=== PATIENT | female | born 1950 | race Caucasian/White ===

== ENCOUNTER 2016-05-16 00:56 | Inpatient (IN) | payer MEDICARE ==
[2016-05-16] VITALS (12 sets, daily range): BP systolic 106–151; BP diastolic 53–67; PULSE 89–106; RESP 15–20; TEMP 96–97.5; O2SAT 95–100
[~2016-05-16] VITALS: Ht 160 cm; Wt 58.3 kg
[~2016-05-16 00:56] MED LIST: ASPI81 PO; LATA.005%O OU; LEVO100T60 PO; NOVOLOGP2 IMPLANPUMP; SIMV20 PO
--- NOTE | 2016-05-16 01:07 | PD ---
HPI Chief Complaint: Fall Time Seen by Provider: 01:07 Travel History International Travel<30 days: No Contact w/Intl Traveler<30days: No Traveled to known affect area: No History of Present Illness HPI 66-year-old female with history of CAD with stent placement, hypertension, COPD , type 1 diabetes with an insulin pump, PVD, tobacco dependency, presents to the emergency department for evaluation of right hip pain. Patient states that she was walking her dog when she tripped over her dog and landed on her hip. She rates the pain 10 out of 10. She is unable to ambulate secondary to the pain. She did not strike her head or lose consciousness. Denies alterations in sensation. States she is unable to move the right hip without extreme pain. No other symptoms to report. PFSH Past Medical History Cancer: No Cardiovascular Problems: No Chest Pain: No Diabetes: Yes Endocrine: Yes Gastrointestinal Disorders: No Glaucoma: No Genitourinary: No Hepatitis: No Hiatal Hernia: Yes Hypertension: No Immune Disorder: No Musculoskeletal: No Neurologic: No Psychiatric: No Reproductive: No Respiratory: No Integumentary: No Thyroid Disease: Yes Past Surgical History Abdominal Surgery: Yes (appendectomy hernia repair stents placed in lower abd) Body Medical Devices: stents in the lower abd and diabetes device Cardiac Surgery: No Ear Surgery: No Endocrine Surgery: Yes (INSULIN PUMP) Eye Surgery: Yes (LASER) Genitourinary Surgery: No Gynecologic Surgery: No Oral Surgery: No Thoracic Surgery: No Social History Alcohol Use: Yes Tobacco Use: Yes Substance Use: No Allergies-Medications (Allergen,Severity, Reaction): Coded Allergies: Keflex (Verified Allergy, Severe, trouble breathing, 05/16/16) Naproxen (Verified Allergy, Severe, HIVES, , 05/16/16) Penicillin (Verified Allergy, Severe, trouble breathing, 05/16/16) Sulfa (Verified Allergy, Severe, trouble breathing, 05/16/16) Bethanechol (Verified Allergy, Intermediate, 05/16/16) Celebrex (Verified Allergy, Intermediate, 05/16/16) Reported Meds & Prescriptions Reported Meds & Active Scripts Active Reported Lisinopril 2.5 Mg Tab 2.5 Mg PO DAILY Plavix (Clopidogrel Bisulfate) 75 Mg Tab 75 Mg PO DAILY Furosemide 20 Mg Tab 20 Mg PO DAILY Aspirin 81 (Aspirin) 81 Mg Tabdr 81 Mg PO DAILY Novolog Inj (Insulin Aspart) 1,000 Unit/10 Ml Vial 0 SQ DIRECTED Sliding Scale as directed. Latanoprost Opth Drops (Latanoprost) 0.005% Drops 1 Drop EACH EYE HS Refrigerate until opened. Pravastatin 40 Mg Tab 40 Mg PO DAILY Levothyroxine (Levothyroxine Sodium) 100 Mcg Tab 100 Mcg PO DAILY Review of Systems Except as stated in HPI: all other systems reviewed are Neg Physical Exam Narrative GENERAL: Well-nourished, well-developed female patient, lying in bed, in no acute distress SKIN: Warm and dry. HEAD: Normocephalic. Atraumatic EYES: No scleral icterus. No injection or drainage. Pupils are equal and reactive. NECK: Supple, trachea midline. No JVD or lymphadenopathy. Cervical spine tenderness to palpation. CARDIOVASCULAR: Regular rate and rhythm without murmurs, gallops, or rubs. RESPIRATORY: Breath sounds are coarse, state and expiratory wheeze, equal bilaterally. No accessory muscle use. Abdomen: Abdomen soft, non-tender, nondistended. Positive bowel sounds. No hepato-splenomegaly, or palpable masses. No guarding. MUSCULOSKELETAL: No cyanosis. Edema, lower lateral deformity of the right hip. Areas very tender to palpate. The right lower extremity is shortened and rotated outward. Distal pulses are palpable. Cap refill is within normal limits. Patient can flex and extend the distal lower extremities. Sensation is intact distal affected extremity. BACK: Nontender without obvious deformity. No CVA tenderness. Data Data Last Documented VS Vital Signs Date Time Temp Pulse Resp B/P Pulse Ox O2 Delivery O2 Flow Rate FiO2 05/16/16 01:11 Room Air 05/16/16 01:06 97.5 103 18 144/67 95 Orders Basic Metabolic Panel (Bmp) (05/16/16 01:05) Complete Blood Count With Diff (05/16/16 01:05) Prothrombin Time / Inr (Pt) (05/16/16 01:05) Act Partial Throm Time (Ptt) (05/16/16 01:05) Alcohol (Ethanol) (05/16/16 01:05) Urinalysis - C+S If Indicated (05/16/16 01:05) Chest, Single Ap (05/16/16 01:05) Iv Access Insert/Monitor (05/16/16 01:05) Ecg Monitoring (05/16/16 01:05) Oximetry (05/16/16 01:05) Oxygen Administration (05/16/16 01:05) Sodium Chloride 0.9% Flush (Ns Flush) (05/16/16 01:15) Hip, Uni(Ap&Lat) W Ap Pelvis (05/16/16 ) MDM Medical Decision Making Medical Screen Exam Complete: Yes Emergency Medical Condition: Yes Medical Record Reviewed: Yes Differential Diagnosis fracture versus dislocation versus contusion versus sprain Narrative Course 66-year-old female presents to emergency department for evaluation following a fall. Patient appears without distress. There appears to be lateral deformity of the right hip with shortening and rotation of the right lower extremity. The extremity remains neurovascularly intact. X-ray imaging and lab work is ordered. Patient is signed out to my attending physician Dr. Marquez who will assume care at this time. Condition: Stable Georgia Lopez May 16, 2016 01:07
[2016-05-16] MEDS ORDERED: SODIUM CHLORIDE 0.9% FLUSH 5 ML FLUSH IVF PRN ×3 (01:15→11:15)
[2016-05-16] MEDS ORDERED: LEVO112T2 PO (01:19)
[2016-05-16] MEDS ORDERED: PRAV40TA2 PO (01:19)
[2016-05-16] MEDS ORDERED: LATA0.002 EACH EYE (01:19)
[2016-05-16] MEDS ORDERED: LISI2.5T3 PO (01:19)
[2016-05-16] MEDS ORDERED: PLAV75TA29 PO (01:19)
[2016-05-16] MEDS ORDERED: ASPI-110 PO (01:19)
[2016-05-16] MEDS ORDERED: FURO20TA PO (01:19)
[2016-05-16] MEDS ORDERED: NOVOLOGP2 SQ (01:19)
[2016-05-16] MEDS ORDERED: LEVO100T5 PO (01:19)
--- NOTE | 2016-05-16 01:27 | PD ---
Physical Exam Narrative Patient was seen by my food and beverage assistant and signed out to me. Patient has history hypertension, diabetes, hypothyroidism, PVD, stents placement and IVC in place. Patient's on Plavix. Data Data Last Documented VS Vital Signs Date Time Temp Pulse Resp B/P Pulse Ox O2 Delivery O2 Flow Rate FiO2 05/16/16 03:42 20 98 05/16/16 01:11 Room Air 05/16/16 01:06 97.5 103 144/67 Orders Basic Metabolic Panel (Bmp) (05/16/16 01:05) Complete Blood Count With Diff (05/16/16 01:05) Prothrombin Time / Inr (Pt) (05/16/16 01:05) Act Partial Throm Time (Ptt) (05/16/16 01:05) Alcohol (Ethanol) (05/16/16 01:05) Urinalysis - C+S If Indicated (05/16/16 01:05) Chest, Single Ap (05/16/16 01:05) Iv Access Insert/Monitor (05/16/16 01:05) Ecg Monitoring (05/16/16 01:05) Oximetry (05/16/16 01:05) Oxygen Administration (05/16/16 01:05) Sodium Chloride 0.9% Flush (Ns Flush) (05/16/16 01:15) Hip, Uni(Ap&Lat) W Ap Pelvis (05/16/16 ) Electrocardiogram (05/16/16 ) Hydromorphone Pf Inj (Dilaudid Pf Inj) (05/16/16 02:00) Ondansetron Inj (Zofran Inj) (05/16/16 02:00) Urinary Catheter Insert/Apply (05/16/16 01:51) ^ Property Developer / Telemetry (05/16/16 02:54) Vital Signs (Adult) Q4H (05/16/16 02:54) Diet Npo (05/16/16 Breakfast) Activity Bed Rest (05/16/16 02:54) ^ Saline Lock (05/16/16 02:54) Resp Oxygen Carlos C Titrat 1-4 L (05/16/16 ) ^ Notify Dr: Other (05/16/16 02:54) Ondansetron Inj (Zofran Inj) (05/16/16 03:00) Acetaminophen (Tylenol) (05/16/16 03:00) Sodium Chloride 0.9% Flush (Ns Flush) (05/16/16 09:00) Sodium Chloride 0.9% Flush (Ns Flush) (05/16/16 03:00) Consult Orthopedic (05/16/16 02:54) Splint Or Brace Apply/Monitor (05/16/16 02:56) Hydromorphone Pf Inj (Dilaudid Pf Inj) (05/16/16 03:00) Hydromorphone Pf Inj (Dilaudid Pf Inj) (05/16/16 03:00) (Hub Use Only)Inp Phy Cons/Ref (05/16/16 ) Admit Order (Ed Use Only) (05/16/16 03:46) Labs Laboratory Tests Test 05/16/16 05/16/16 01:26 03:00 White Blood Count 11.8 TH/MM3 Red Blood Count 3.72 MIL/MM3 Hemoglobin 12.5 GM/DL Hematocrit 36.9 % Mean Corpuscular Volume 99.1 FL Mean Corpuscular Hemoglobin 33.4 PG Mean Corpuscular Hemoglobin 33.7 % Concent Red Cell Distribution Width 13.5 % Platelet Count 309 TH/MM3 Mean Platelet Volume 8.0 FL Neutrophils (%) (Auto) 68.9 % Lymphocytes (%) (Auto) 19.6 % Monocytes (%) (Auto) 10.3 % Eosinophils (%) (Auto) 0.7 % Basophils (%) (Auto) 0.5 % Neutrophils # (Auto) 8.1 TH/MM3 Lymphocytes # (Auto) 2.3 TH/MM3 Monocytes # (Auto) 1.2 TH/MM3 Eosinophils # (Auto) 0.1 TH/MM3 Basophils # (Auto) 0.1 TH/MM3 CBC Comment DIFF FINAL Differential Comment Prothrombin Time 9.8 SEC Prothromb Time International 0.9 RATIO Ratio Activated Partial 27.3 SEC Thromboplast Time Sodium Level 143 MEQ/L Potassium Level 3.9 MEQ/L Chloride Level 108 MEQ/L Carbon Dioxide Level 22.1 MEQ/L Anion Gap 13 MEQ/L Blood Urea Nitrogen 29 MG/DL Creatinine 0.95 MG/DL Estimat Glomerular Filtration 59 ML/MIN Rate Random Glucose 62 MG/DL Calcium Level 7.9 MG/DL Ethyl Alcohol Level 167 MG/DL Urine Color LIGHT-YELLOW Urine Turbidity CLEAR Urine pH 5.0 Urine Specific [place] 1.009 Urine Protein NEG mg/dL Urine Glucose (UA) NEG mg/dL Urine Ketones NEG mg/dL Urine Occult Blood NEG Urine Nitrite NEG Urine Bilirubin NEG Urine Urobilinogen LESS THAN 2.0 MG/DL Urine Leukocyte Esterase NEG Urine RBC LESS THAN 1 /hpf Urine Bacteria RARE /hpf Urine Mucus FEW /lpf Microscopic Urinalysis Comment CULT NOT INDICATED MDM Supervised Visit with JOAQUINA: Yes Interpretation(s) 2 36 AM. Right hip x-ray showed comminuted intertrochanteric fracture a hip. Chest x-ray shows no acute pathology. CBC within normal limit. BUN 29. Calcium 7.9. Glucose 62. Alcohol 167. Diagnosis Primary Impression: Fracture of right femur Qualified Code: S72.141A - Closed displaced intertrochanteric fracture of right femur, initial encounter Admitting Information Admitting Physician Requests: Admit Yadiel Marquez MD May 16, 2016 01:27
[2016-05-16 01:34] LABS: AUTOMATED NEUTROPHIL # 8.1 TH/MM3 (1.8-7.7); BASOPHIL # 0.1 TH/MM3 (0-0.2); BASOPHIL % 0.5 % (0.0-2.0); EOSINOPHIL # 0.1 TH/MM3 (0-0.4); EOSINOPHIL % 0.7 % (0.0-4.0); HEMATOCRIT 36.9 % (35.0-46.0); HEMO FLAGS DIFF FINAL; LYMPH % 19.6 % (9.0-44.0); LYMPHOCYTE # 2.3 TH/MM3 (1.0-4.8); MEAN CELL VOLUME 99.1 FL (80.0-100.0); MEAN CORPUSCULAR HEMOGLOBIN 33.4 PG (27.0-34.0); MEAN CORPUSCULAR HGB CONC 33.7 % (32.0-36.0); MONO % 10.3 % (0.0-8.0); NEUT % 68.9 % (16.0-70.0); PLATELET COUNT 309 TH/MM3 (150-450); RED BLOOD COUNT 3.72 MIL/MM3 (4.00-5.30); RED CELL DISTRIBUTION WIDTH 13.5 % (11.6-17.2); WHITE BLOOD COUNT 11.8 TH/MM3 (4.0-11.0)
[2016-05-16 01:48] LABS: BICARBONATE 22.1 MEQ/L (21.0-32.0); POTASSIUM 3.9 MEQ/L (3.5-5.1)
[2016-05-16 01:52] LABS: APTT (PATIENT) 27.3 SEC (24.3-30.1); INTERNATIONAL NORMALIZED RATIO 0.9 RATIO; PROTHROMBIN TIME - PATIENT 9.8 SEC (9.8-11.6)
[2016-05-16] MEDS ORDERED: ONDANSETRON HCL 4 MG/2 ML VIAL IV PUSH ONE ×2 (02:00→11:38)
[2016-05-16] MEDS ORDERED: HYDROmorphone HCL PF 1 MG/ML VIAL SQ ONE (02:00)
--- NOTE | 2016-05-16 02:26 | RADRPT ---
EXAM DATE/TIME: 05/16/2016 01:59 [facility] COMPARISON: No previous studies available for comparison. INDICATIONS : Pt tripped and fell tonight. C/o right hip pain. MEDICAL HISTORY : Diabetes mellitus type II. SURGICAL HISTORY : None. ENCOUNTER: Initial ACUITY: 1 day PAIN SCORE: 8/10 LOCATION: Bilateral chest FINDINGS: A single view of the chest demonstrates the lungs to be symmetrically aerated without evidence of mas s, infiltrate or effusion. The cardiomediastinal contours are unremarkable. Osseous structures are intact. CONCLUSION: Normal examination. Dion Sales MD on May 16, 2016 at 2:24 Board Certified Radiologist. This report was verified electronically.
--- NOTE | 2016-05-16 02:27 | RADRPT ---
EXAM DATE/TIME: 05/16/2016 02:01 [facility] COMPARISON: No previous studies available for comparison. INDICATIONS : Pt tripped and fell tonight. C/o right hip pain. MEDICAL HISTORY : Diabetes mellitus type II. SURGICAL HISTORY : None. None. ENCOUNTER: Initial ACUITY: 1 day PAIN SCORE: 9/10 LOCATION: Right hip FINDINGS: Examination of the right hip was performed with AP Pelvis. There is a comminuted intertrochanteric fr acture the right hip. There is definite foreshortening and varus alignment of the femoral neck and fe moral shaft CONCLUSION: Comminuted intertrochanteric fracture of the right hip. Dion Sales MD on May 16, 2016 at 2:25 Board Certified Radiologist. This report was verified electronically.
[2016-05-16] MEDS ORDERED: ONDANSETRON HCL 4 MG/2 ML VIAL IV PRN (03:00)
[2016-05-16] MEDS ORDERED: HYDROmorphone HCL PF 1 MG/ML VIAL IV PUSH ONE (03:00)
[2016-05-16] MEDS ORDERED: ACETAMINOPHEN 325 MG TAB PO PRN (03:00)
[2016-05-16 03:27] LABS: BACTERIA, URINE RARE /hpf; BLOOD, URINE NEG (NEG); COMMENT (UR) CULT NOT INDICATED; CULTURE IF INDICATED CULT NOT INDICATED; GLUCOSE,URINE NEG (NEG); KETONE, URINE NEG (NEG); MUCUS URINE FEW /lpf (OCC); NITRITE,URINE NEG (NEG); URINE COLOR LIGHT-YELLOW (YELLW/STRAW)
[2016-05-16] MEDS: HYDROmorphone HCL PF 1 MG/ML VIAL IV PUSH PRN ×2 (06:23→19:49)
[2016-05-16] MEDS ORDERED: SODIUM CHLORIDE 0.9% FLUSH 5 ML FLUSH IVF SCH (09:00)
[2016-05-16] MEDS ORDERED: GLUCAGON 1 MG/ML VIAL OTHER PRN (10:00)
[2016-05-16] MEDS ORDERED: DEXTROSE 50% IN WATER 50 ML VIAL(D50) IV PUSH PRN (10:00)
[2016-05-16] MEDS ORDERED: MIDAZOLAM HCL 2 MG/2 ML VIAL ONE (10:01)
--- NOTE | 2016-05-16 10:01 | MB ---
cc: SAVAGE GARCIA DATE OF CONSULTATION: 05/16/2016 REASON FOR CONSULTATION: Right hip intertrochanteric fracture. HISTORY Di is a 66-year old female who has a history of coronary artery disease, hypertension, COPD, and diabetes. She presented emergency room after having a fall. She was walking her dog when she tripped over her dog's leash landing on her right side. She had immediate right hip pain. She was unable to stand or ambulate. She presented to the emergency room where x-rays revealed a right hip intertrochanteric fracture. She is currently awake and alert on the orthopedic floor. Her only complaint is her right hip. Pain is improved with rest and is worse with movement. She denies any dizziness, syncope, loss of consciousness. PAST MEDICAL HISTORY: 1. Diabetes. 2. Hiatal hernia. 3. Coronary artery disease. 4. COPD. PAST SURGICAL HISTORY: 1. Appendectomy. 2. Hernia repair. 3. Coronary artery stent placement. 4. Insulin pump placement. 5. Laser eye surgery. ALLERGIES: KEFLEX NAPROXEN PENICILLIN SULFA CELEBREX MEDICATIONS: 1. Lisinopril 2. Plavix. 3. Lasix. 4. Aspirin 5. Novolog. 6. Pravastatin. 7. Levothyroxine. SOCIAL HISTORY: The patient drinks alcohol. She smokes cigarettes daily. She denies drug use. REVIEW OF SYSTEMS: The patient denies headache, visual changes, neck pain, chest pain, shortness of breath, abdominal pain, nausea, vomiting or recent weight loss. She complains of right hip pain. FAMILY HISTORY: Noncontributory. PHYSICAL EXAMINATION: The patient is a thin 66 year-old female in no acute distress. She is awake and alert. She is alert and oriented x3. Vital signs: Temperature 97.0, pulse 101, respiratory rate 16, blood pressure 114/59. O2 sat is 97% on room air. Head: The patient is normocephalic. Pupils are equal. Neck: Soft, nontender. Trachea is midline. Abdomen: Soft, nontender, nondistended. Extremities: Examination of bilateral upper extremities reveals no significant pain with shoulder, elbow or wrist motion. She has intact sensation in all fingers bilaterally. Radial pulses are palpable bilaterally. Director Of Digital Marketing strength is +5 bilaterally. Examination of left leg reveals no pain with hip, knee or ankle motion. Skin is intact. Dorsalis pedis pulses palpable. Sensation is grossly intact. Examination of right leg reveals pain with any hip motion. She has no tenderness on the knee, tibia or ankle. Skin is intact. Dorsalis pedis pulses palpable. Sensation is grossly intact to right foot. X-RAYS X-rays of right hip were reviewed. X-rays reveal a displaced right hip intertrochanteric fracture. IMPRESSION 1. Right hip intertrochanteric fracture. 2. Smoking dependence 3. Coronary artery disease 4. Diabetes 5. COPD. PLAN She has a displaced right hip intertrochanteric fracture. Treatment options were discussed with the patient. At this point I would recommend right hip reduction, intramedullary nail fixation. The risks of surgery include bleeding, infection, injury to arteries, nerves or blood vessels, nonunion, malunion, avascular process, need for hip replacement as well as medical complications including blood clot, stroke, heart attack and . All questions were answered. I will plan on surgery today. A mid-level provider in my office (nurse practitioner or physician pharmacy technician assistant) may see this patient on follow-up visits and continue to implement the objectives of this plan including: Starting or adjusting medications, injections , cast application, orthotics, brace application, physical therapy, radiological studies (including x-ray, MRI, CT, ultrasound, bone scan), vascular studies, neurologic studies, specialist consultation, and proceeding with surgical management, as appropriate. Savage MD ELIZABETH Izaguirre/ERIN /9:44 AM /9:55 AM LENA
[2016-05-16] MEDS ORDERED: ACETAMINOPHEN 1000 MG/100 ML VIAL IV ONE (10:02)
[2016-05-16] MEDS ORDERED: FAMOTIDINE 20 MG/2 ML VIAL ONE (10:02)
[2016-05-16] MEDS ORDERED: fentaNYL CITRATE 250 MCG/5 ML AMP ONE (10:02)
[2016-05-16] MEDS ORDERED: CLINDAMYCIN PHOS 600 MG/4 ML VIAL ONE (10:22)
[2016-05-16] MEDS ORDERED: GENTAMICIN SULFATE 80 MG/2 ML VIAL IRRIGATION ONE (10:55)
[2016-05-16] MEDS ORDERED: BUPIVACAINE/EPINEPHRINE 0.25% PF 30 ML VIAL ONE (11:08)
--- NOTE | 2016-05-16 11:10 | HHI.HP ---
HPI Service [facility] Hospitalists Primary Care Physician Loy Orourke M.D. Admission Diagnosis fracture right femur Chief Complaint: hip pain Travel History International Travel<30 Days: No Contact w/Intl Traveler <30 Da: No Traveled to Known Affected Are: No History of Present Illness Pt is 66 yo with cad, htn, dm who presents with right hip pain after trip over dog leash. etoh noted in her system. She is found to have right intertroch fx. She is seen now in [facility]..she is waking up. Her bg is 133 and her insulin pump still attached. no cp or sob. her vss are stable on monitor. No loc in the fall. Review of Systems Other trip over dog leash with right hip/leg pain Past Family Social History Past Medical History dm. 1. insulin pump implant cad "3 stents" hypothyroidism htn copd HH appe hernia repair IVC filter for leg dvt Reported Medications Lisinopril 2.5 Mg Tab 2.5 Mg PO DAILY Plavix (Clopidogrel Bisulfate) 75 Mg Tab 75 Mg PO DAILY Furosemide 20 Mg Tab 20 Mg PO DAILY Aspirin 81 (Aspirin) 81 Mg Tabdr 81 Mg PO DAILY Novolog Inj (Insulin Aspart) 1,000 Unit/10 Ml Vial 0 SQ DIRECTED Sliding Scale as directed. Latanoprost Opth Drops (Latanoprost) 0.005% Drops 1 Drop EACH EYE HS Refrigerate until opened. Pravastatin 40 Mg Tab 40 Mg PO DAILY Levothyroxine (Levothyroxine Sodium) 100 Mcg Tab 100 Mcg PO DAILY denies xarelto use. Allergies: Coded Allergies: Keflex (Verified Allergy, Severe, trouble breathing, 05/16/16) Naproxen (Verified Allergy, Severe, HIVES, , 05/16/16) Penicillin (Verified Allergy, Severe, trouble breathing, 05/16/16) Sulfa (Verified Allergy, Severe, trouble breathing, 05/16/16) Bethanechol (Verified Allergy, Intermediate, 05/16/16) Celebrex (Verified Allergy, Intermediate, 05/16/16) Family History nc Social History etoh- daily wine 2 glasses. denies DT's and tob use up to 1ppd since teenager Physical Exam Vital Signs drowsy from anesthesia heart reg lung cta abd s/nt ext right lat hip swollen garcia Vital Signs Date Time Temp Pulse Resp B/P Pulse Ox O2 Delivery O2 Flow Rate FiO2 05/16/16 07:16 97.0 101 16 114/59 97 05/16/16 06:15 97.4 95 16 106/63 97 05/16/16 05:54 96 20 107/53 96 05/16/16 05:29 96 20 117/53 96 05/16/16 04:18 20 05/16/16 04:18 20 05/16/16 04:05 100 20 151/58 98 05/16/16 03:42 20 98 05/16/16 01:11 Room Air 05/16/16 01:06 97.5 103 18 144/67 95 Room Air 05/16/16 01:01 97.5 105 18 95 Laboratory Laboratory Tests Test 05/16/16 05/16/16 01:26 03:00 White Blood Count 11.8 Red Blood Count 3.72 Hemoglobin 12.5 Hematocrit 36.9 Mean Corpuscular Volume 99.1 Mean Corpuscular Hemoglobin 33.4 Mean Corpuscular Hemoglobin 33.7 Concent Red Cell Distribution Width 13.5 Platelet Count 309 Mean Platelet Volume 8.0 Neutrophils (%) (Auto) 68.9 Lymphocytes (%) (Auto) 19.6 Monocytes (%) (Auto) 10.3 Eosinophils (%) (Auto) 0.7 Basophils (%) (Auto) 0.5 Neutrophils # (Auto) 8.1 Lymphocytes # (Auto) 2.3 Monocytes # (Auto) 1.2 Eosinophils # (Auto) 0.1 Basophils # (Auto) 0.1 CBC Comment DIFF FINAL Differential Comment Prothrombin Time 9.8 Prothromb Time International 0.9 Ratio Activated Partial 27.3 Thromboplast Time Sodium Level 143 Potassium Level 3.9 Chloride Level 108 Carbon Dioxide Level 22.1 Anion Gap 13 Blood Urea Nitrogen 29 Creatinine 0.95 Estimat Glomerular Filtration 59 Rate Random Glucose 62 Calcium Level 7.9 Ethyl Alcohol Level 167 Urine Color LIGHT-YELLOW Urine Turbidity CLEAR Urine pH 5.0 Urine Specific [place] 1.009 Urine Protein NEG Urine Glucose (UA) NEG Urine Ketones NEG Urine Occult Blood NEG Urine Nitrite NEG Urine Bilirubin NEG Urine Urobilinogen LESS THAN 2.0 Urine Leukocyte Esterase NEG Urine RBC LESS THAN 1 Urine Bacteria RARE Urine Mucus FEW Microscopic Urinalysis Comment CULT NOT INDICATED Result Diagram: 05/16/166 05/16/16 0126 Assessment and Plan Problem List: (1) Fracture of right femur Status: Acute Plan: Pt presented with right hip pain after trip and fall over dogleash. She was drinking etoh. intertrochanteric fx right femur s/p reduction and intramed travis 05/16/15 pain control PT dvt prophylaxis d/c garcia tomorrow would resume asa/plavix before d/c denies hx dt's..monitor. decide on disposition snf vs c. (2) Diabetes Status: Chronic Plan: insulin pump. ssi as needed bg q4hr for now. (3) HTN (hypertension) Status: Chronic Plan: cont home meds (4) Hypothyroid Status: Chronic Plan: cont home meds (5) CAD (coronary artery disease) Status: Chronic Plan: resume asa/plavix tomorrow if ok with ortho (6) S/P IVC filter Status: Chronic Plan: Pt had ivc filter placed earlier this yr for "dvt" right leg denies current blood thinner use except for asa/plavix Physician Certification 2 Midnight Certification Type: Admission for Inpatient Services Order for Inpatient Services 3The services are ordered in accordance with Medicare regulations or non- Medicare payer requirements, as applicable. In the case of services not specified as inpatient-only, they are appropriately provided as inpatient services in accordance with the 2-midnight benchmark. Estimated LOS (days): 3 3 days is the estimated time the patient will need to remain in the hospital, assuming treatment plan goals are met and no additional complications. Post-Hospital Plan: SNF Problem Qualifiers (1) Fracture of right femur: Qualified Code: S72.141A - Closed displaced intertrochanteric fracture of right femur, initial encounter Fred Evans MD May 16, 2016 11:10
[2016-05-16] MEDS ORDERED: diphenhydrAMINE HCL 25 MG CAP PO PRN (11:15)
[2016-05-16] MEDS ORDERED: ENOXAPARIN SODIUM 30 MG/0.3 ML SYRINGE SQ SCH (11:15)
[2016-05-16] MEDS ORDERED: MORPHINE SULFATE 4 MG/ML INJ IV PUSH PRN (11:15)
[2016-05-16] MEDS ORDERED: HYDR-3288 PO (11:16)
[2016-05-16] MEDS ORDERED: XARE10TA PO (11:16)
[2016-05-16] MEDS ORDERED: WALKER/ADULT/FO1 MIS (11:17)
--- NOTE | 2016-05-16 11:17 | PD.OP ---
cc: Savage Serrano MD Operative Report Date of Surgery: May 16, 2016 Preoperative Diagnosis: Right hip intertrochanteric/subtrochanteric femur fracture Postoperative Diagnosis: Procedure: Right femur reduction and intramedullary nail fixation Anesthesia: Gen. Surgeon: Savage Serrano Big Data Engineer(s): EULALIO Langley PA-C The surgical procedure was assisted by my physician food and beverage assistant manager. My P.A. presence was necessary throughout this case for the manipulation and positioning of the surgical extremity. My P.A. was assisting me throughout the duration of this procedure. The skill set of a physician food and beverage assistant manager was medically necessary to complete this procedure. During the surgical case the surgical corsetier was working at the back table and the physician food and beverage assistant manager was directly assisting me. Operation and Findings: Implants used: 10 mm x [360]mm 130 Synthes TFNA troch nail Plan of activity: 50% weightbearing 3 weeks, then full weightbearing Patient was seen and evaluated preoperatively. The patient has significant hip pain from proximal femur fracture. The risk and benefits of surgery were discussed in depth with the patient to include bleeding, infection, nonunion, malunion, need for hip replacement, painful hardware, as well as medical competitions including blood clots, stroke, heart attack, and . Informed consent was obtained. Operative site was marked. Patient was brought to the operating room and placed on fracture table. IV sedation was administered by anesthesiologist. Timeout procedure was performed. Hip and leg were prepped with alcohol followed by DuraPrep and draped in the usual sterile fashion. IV antibiotics were given prior to incision. Procedure began with reduction of fracture. Traction was applied. The leg was manipulated to achieve reduction. Excellent reduction was achieved. Fluoroscopy was used to confirm reduction. A three inch incision was made proximal to the trochanter. Subcutaneous tissue was dissected bluntly. Guidepin was placed at the tip of the trochanter and advanced into the femoral canal. Fluoroscopy confirmed appropriate guidepin placement. A opening reamer was placed over the guidepin. A long ball tipped guide pin was now placed down the femoral canal into the center of the distal femur. The nail length was now measured. Fluoroscopy confirmed appropriate guidepin placement. Flexible reamers were now passed over the guidepin to ream the intramedullary canal. The Synthes TFNA nail was attached to the insertion handle. Nail was now placed over the guidepin into the femoral canal. Fluoroscopy confirmed appropriate nail placement. A second incision was made over the lateral thigh. Cannulas were placed through the insertion handle down to the femur. Guidepin was now placed through the femoral nail into the center of the femoral head. Fluoroscopy confirmed appropriate guidepin placement. Screw length was measured. Cannulated drill was placed over the guidepin. Appropriate length lag screw was now placed. Traction was released and compression was applied. The set screw was now tightened in dynamic mode. Next, using perfect torres martinez technique two distal interlocking screws were placed. Screw holes were predrilled and screw lengths were measured. Final fluoroscopy revealed well aligned fracture with well-placed hardware. Incision was closed with 3-0 Vicryl and joe. Sterile dressings were applied. Patient was awakened and transferred to recovery room. Savage Serrano MD May 16, 2016 11:17
[2016-05-16] MEDS ORDERED: DO NOT ADM ANY ANTICOAGULANT DRUGS XX PRN (11:32)
[2016-05-16] MEDS ORDERED: NORMOSOL R INJ 1,000 ML IV ONE (11:38)
[2016-05-16] MEDS ORDERED: PROPOFOL 200 MG/20 ML AMP IV ONE (11:38)
[2016-05-16] MEDS ORDERED: *morphine SULFATE 8 MG/ML PERIprocedure ONLY ONE ×3 (11:43→12:10)
--- NOTE | 2016-05-16 11:43 | RADRPT ---
EXAM DATE/TIME: 05/16/2016 11:08 [facility] COMPARISON: No previous studies available for comparison. INDICATIONS : ORIF right femur IM travis. MEDICAL HISTORY : None. SURGICAL HISTORY : None. ENCOUNTER: Subsequent ACUITY: 1 day PAIN SCORE: Non-responsive. LOCATION: Right hip. FINDINGS: 6 spot intraoperative fluoroscopic views of the right femur demonstrate antegrade intramedullary travis placement with 2 distal interlocking screws and a proximal femoral neck pin. CONCLUSION: Postoperative changes are seen status post fixation of a right proximal femur fracture. Earl Gutierrez MD on May 16, 2016 at 11:41 Board Certified Radiologist. This report was verified electronically.
[2016-05-16] MEDS: INSULIN ASPART SUPPLEMENTAL SCALE SQ SCH ×3 (11:50→19:55)
[2016-05-16] MEDS ORDERED: PILL SPLITTER OTHER PRN (12:45)
[2016-05-16] MEDS ORDERED: ERGOCALCIFEROL (VIT D2) 50,000 UNIT CAP PO ONE (13:00)
[2016-05-16] MEDS: CALCIUM/VITAMIN D 250 MG/125 U TAB PO SCH ×2 (13:17→16:38)
--- NOTE | 2016-05-16 13:38 | EKG ---
Date Performed: 05/16/2016 Time Performed: 02:35:35 PTAGE: 66 years EKG: SINUS TACHYCARDIA POSSIBLE RIGHT ATRIAL ENLARGEMENT Since previous tracing, no significant change noted ABNORMAL RHYTHM ECG PREVIOUS TRACING : 08/01/2015 08.23.32 DOCTOR: Sheree Pena Interpretating Date/Time 05/16/2016 13:34:08
[2016-05-16] MEDS: ACETAMINOPHEN/HYDROcodone 325 MG/7.5 MG TAB PO PRN ×2 (16:37→23:37)
[2016-05-16] MEDS: LATANOPROST 0.005% OPHT SOLN 2.5 ML BTL EACH EYE SCH (19:48)
[2016-05-16] MEDS: SODIUM CHLORIDE 0.9% FLUSH 5 ML FLUSH IVF SCH (19:49)
[2016-05-17] VITALS (7 sets, daily range): BP systolic 97–133; BP diastolic 53–64; PULSE 68–107; RESP 17–20; TEMP 95.9–99.2; O2SAT 96–100
[2016-05-17] MEDS: LEVOTHYROXINE SODIUM 100 MCG TAB PO SCH (05:48)
[2016-05-17] MEDS: ACETAMINOPHEN/HYDROcodone 325 MG/7.5 MG TAB PO PRN ×4 (05:48→23:06)
[2016-05-17] MEDS: INSULIN ASPART SUPPLEMENTAL SCALE SQ SCH ×4 (05:58→21:00)
[2016-05-17 07:35] LABS: HEMATOCRIT 23.9 % (35.0-46.0); REVIEW FLAG FINAL
--- NOTE | 2016-05-17 08:31 | PD.ORT.PN ---
Subjective Post Op Day #: 1 Subjective Remarks pain tolerable Objective Vitals Vital Signs Date Time Temp Pulse Resp B/P Pulse Ox O2 Delivery O2 Flow Rate FiO2 05/17/16 04:00 97.8 68 18 97/61 96 05/17/16 00:00 97.9 98 18 97/53 99 05/16/16 20:00 96.7 99 18 118/62 98 05/16/16 19:47 96 05/16/16 19:37 Nasal Cannula 2.00 05/16/16 15:55 96.0 106 16 133/62 99 05/16/16 13:21 Nasal Cannula 2.00 05/16/16 13:15 96.3 89 15 110/58 100 05/16/16 12:37 97.3 87 12 147/71 99 Nasal Cannula 2 05/16/16 12:15 87 12 155/75 100 Nasal Cannula 2 05/16/16 12:00 86 15 158/80 100 Nasal Cannula 2 05/16/16 11:45 88 14 164/78 100 Nasal Cannula 2 05/16/16 11:33 97.4 89 14 153/78 100 Nasal Cannula 2 I/O 05/16/16 05/16/16 05/16/16 05/17/16 05/17/16 05/17/16 07:00 15:00 23:00 07:00 15:00 23:00 Intake Total 1480 ml 480 ml 240 ml Output Total 650 ml 550 ml 250 ml 200 ml Balance -650 ml 930 ml 230 ml 40 ml Intake Oral 480 ml 480 ml 240 ml Other 1000 ml Output Urine Total 650 ml 450 ml 250 ml 200 ml Estimated Blood Loss 100 ml # Voids 0 0 # Bowel Movements 0 0 0 Result Diagram: 05/17/16 0615 05/16/16 0126 Objective Remarks in bed, nad dressing c/d/i thigh soft neg homans nvi Assessment & Plan Ortho Post Op Day #: 1 Problem List: Assessment and Plan s/p IMN R subtroch femur fx POD1 50% PWB dressing changes as instructed lovenox PT d/c planning home vs snf f/up dr. vega 2 weeks José Miguel Alvarado May 17, 2016 08:31
[2016-05-17] MEDS: CALCIUM/VITAMIN D 250 MG/125 U TAB PO SCH ×3 (09:52→17:14)
[2016-05-17] MEDS: LISINOPRIL 5 MG TAB PO SCH (09:52)
[2016-05-17] MEDS: SODIUM CHLORIDE 0.9% FLUSH 5 ML FLUSH IVF SCH ×2 (09:53→21:53)
[2016-05-17] MEDS: PRAVASTATIN SOD 40 MG TAB PO SCH (09:53)
[2016-05-17] MEDS: CHOLECALCIFEROL (VIT D3) 5000 UNIT CAP PO SCH (09:53)
[2016-05-17] MEDS: ENOXAPARIN SODIUM 30 MG/0.3 ML SYRINGE SQ SCH (10:45)
[2016-05-17] MEDS: MAGNESIUM HYDROXIDE SUSP 30 ML CUP PO PRN (11:40)
[2016-05-17] MEDS ORDERED: BISACODYL 10 MG SUPP PR PRN (15:30)
[2016-05-17] MEDS ORDERED: MAGNESIUM HYDROXIDE SUSP 30 ML CUP PO PRN (15:30)
[2016-05-17] MEDS ORDERED: SOD PHOSPHATE/SOD BIPHOSPHATE (ADULT) ENEMA 133ML PR PRN (15:30)
--- NOTE | 2016-05-17 15:48 | HHI.PR ---
Subjective Remarks No new complaints. Pain is controlled. Good PO intake. Objective Vitals Vital Signs Date Time Temp Pulse Resp B/P Pulse Ox O2 Delivery O2 Flow Rate FiO2 05/17/16 08:00 95.9 99 20 133/64 98 05/17/16 04:00 97.8 68 18 97/61 96 05/17/16 00:00 97.9 98 18 97/53 99 05/16/16 20:00 96.7 99 18 118/62 98 05/16/16 19:47 96 05/16/16 19:37 Nasal Cannula 2.00 05/16/16 15:55 96.0 106 16 133/62 99 05/16/16 05/16/16 05/17/16 15:00 23:00 07:00 Intake Total 1480 ml 480 ml 240 ml Output Total 550 ml 250 ml 200 ml Balance 930 ml 230 ml 40 ml Intake Oral 480 ml 480 ml 240 ml Other 1000 ml Output Urine Total 450 ml 250 ml 200 ml Estimated Blood Loss 100 ml # Voids 0 # Bowel Movements 0 0 0 Result Diagram: 05/17/16 0615 05/16/16 0126 Imaging Last Impressions Chest X-Ray 05/16/16 0105 Signed Impressions: Service Date/Time: Monday, May 16, 2016 01:59 - CONCLUSION: Normal examination. Dion Sales MD Hip and Pelvis X-Ray 05/16/16 0000 Signed Impressions: Service Date/Time: Monday, May 16, 2016 02:01 - CONCLUSION: Comminuted intertrochanteric fracture of the right hip. Dion Sales MD Femur X-Ray 05/16/16 0000 Signed Impressions: Service Date/Time: Monday, May 16, 2016 11:08 - CONCLUSION: Postoperative changes are seen status post fixation of a right proximal femur fracture. Earl Gutierrez MD Objective Remarks GENERAL: This is a well-nourished, well-developed patient, in no apparent distress. CARDIOVASCULAR: Regular rate and rhythm without murmurs, gallops, or rubs. RESPIRATORY: Clear to auscultation. Breath sounds equal bilaterally. No wheezes , rales, or rhonchi. GASTROINTESTINAL: Abdomen soft, non-tender, nondistended. Normal active bowel sounds MUSCULOSKELETAL: Extremities without clubbing, cyanosis, or edema. NEURO: Alert & Oriented x4 to person, place, time, situation. Moves all ext x4 A/P Problem List: (1) Fracture of right femur Status: Acute Plan: Pt presented with right hip pain after trip and fall over dogleash. She was drinking etoh. intertrochanteric fx right femur s/p reduction and intramed travis 05/16/15 - [place] prn - PT - lovenox - resume ASA/plavix 05/18/16 - recommend SNF at the conclusion of hospitalization (2) Diabetes Status: Chronic Plan: - insulin pump - SSI (3) Hypothyroid Status: Chronic Plan: cont home meds (4) CAD (coronary artery disease) Status: Chronic Plan: resume asa/plavix (5) S/P IVC filter Status: Chronic Plan: Pt had ivc filter placed earlier this yr for "dvt" right leg denies current blood thinner use except for asa/plavix Problem Qualifiers (1) Fracture of right femur: Qualified Code: S72.141A - Closed displaced intertrochanteric fracture of right femur, initial encounter (2) Diabetes: (3) CAD (coronary artery disease): Qualified Code: I25.10 - Coronary artery disease involving [place] heart without angina pectoris, unspecified vessel or lesion type Walt Kerr DO May 17, 2016 15:48
[2016-05-17] MEDS: NICOTINE 21 MG/24 HR PATCH TD SCH (17:14)
[2016-05-17] MEDS: LATANOPROST 0.005% OPHT SOLN 2.5 ML BTL EACH EYE SCH (21:53)
[2016-05-17] MEDS: DOCUSATE SODIUM 100 MG CAP PO SCH (21:53)
[2016-05-18] VITALS (7 sets, daily range): BP systolic 100–125; BP diastolic 52–57; PULSE 90–110; RESP 16–17; TEMP 97.9–98.2; O2SAT 97–100
[2016-05-18] MEDS: ACETAMINOPHEN/HYDROcodone 325 MG/7.5 MG TAB PO PRN ×3 (06:07→20:24)
[2016-05-18] MEDS: LEVOTHYROXINE SODIUM 100 MCG TAB PO SCH (06:07)
[2016-05-18 06:28] LABS: AUTOMATED NEUTROPHIL # 4.9 TH/MM3 (1.8-7.7); BASOPHIL % 0.4 % (0.0-2.0); EOSINOPHIL # 0.1 TH/MM3 (0-0.4); EOSINOPHIL % 1.2 % (0.0-4.0); HEMATOCRIT 21.3 % (35.0-46.0); HEMO FLAGS DIFF FINAL; LYMPH % 21.3 % (9.0-44.0); LYMPHOCYTE # 1.7 TH/MM3 (1.0-4.8); MEAN CELL VOLUME 100.1 FL (80.0-100.0); MEAN CORPUSCULAR HEMOGLOBIN 34.6 PG (27.0-34.0); MEAN CORPUSCULAR HGB CONC 34.5 % (32.0-36.0); MONO % 14.8 % (0.0-8.0); NEUT % 62.3 % (16.0-70.0); PLATELET COUNT 193 TH/MM3 (150-450); RED BLOOD COUNT 2.13 MIL/MM3 (4.00-5.30); RED CELL DISTRIBUTION WIDTH 13.9 % (11.6-17.2); WHITE BLOOD COUNT 7.8 TH/MM3 (4.0-11.0)
[2016-05-18 06:57] LABS: BICARBONATE 30.7 MEQ/L (21.0-32.0); MAGNESIUM 2.2 MG/DL (1.5-2.5); POTASSIUM 4.3 MEQ/L (3.5-5.1)
[2016-05-18] MEDS: INSULIN ASPART SUPPLEMENTAL SCALE SQ SCH ×4 (07:00→21:00)
--- NOTE | 2016-05-18 07:05 | PD.ORT.PN ---
Subjective Subjective Remarks POd 2 s/p IMN right intertroch doing well. pain controlled. out of bed with walker. Objective Vitals Vital Signs Date Time Temp Pulse Resp B/P Pulse Ox O2 Delivery O2 Flow Rate FiO2 05/18/16 01:48 98.1 106 16 109/56 98 05/18/16 00:06 16 05/17/16 20:00 99.2 106 17 105/54 99 05/17/16 17:27 99 21 05/17/16 16:00 98.4 106 20 111/53 100 05/17/16 12:00 98.2 107 18 111/57 100 05/17/16 08:00 95.9 99 20 133/64 98 I/O 05/17/16 05/17/16 05/17/16 05/18/16 05/18/16 05/18/16 07:00 15:00 23:00 07:00 15:00 23:00 Intake Total 240 ml 400 ml 360 ml 120 ml Output Total 200 ml 400 ml Balance 40 ml 0 ml 360 ml 120 ml Intake Oral 240 ml 400 ml 360 ml 120 ml Output Urine Total 200 ml 400 ml # Voids 2 2 1 # Bowel Movements 0 0 0 Result Diagram: 05/18/16 0553 05/18/16 0553 Objective Remarks LLE: dressings clean and dry. intact. NVI. out of bed and in chair Assessment & Plan Assessment and Plan 1) s/p IMN R subtroch femur fx POD1 50% PWB dressing changes as instructed lovenox PT d/c planning home vs snf f/up dr. vega 2 weeks Sergio Rain May 18, 2016 07:05
[2016-05-18] MEDS ORDERED: ASPIRIN EC 81 MG TABEC PO SCH (09:00)
[2016-05-18] MEDS ORDERED: CLOPIDOGREL 75 MG TAB PO SCH (09:00)
[2016-05-18] MEDS: LISINOPRIL 5 MG TAB PO SCH (09:04)
[2016-05-18] MEDS: CHOLECALCIFEROL (VIT D3) 5000 UNIT CAP PO SCH (09:04)
[2016-05-18] MEDS: PRAVASTATIN SOD 40 MG TAB PO SCH (09:04)
[2016-05-18] MEDS: CALCIUM/VITAMIN D 250 MG/125 U TAB PO SCH ×3 (09:04→18:00)
[2016-05-18] MEDS: DOCUSATE SODIUM 100 MG CAP PO SCH ×2 (09:04→20:23)
[2016-05-18] MEDS: SODIUM CHLORIDE 0.9% FLUSH 5 ML FLUSH IVF SCH ×2 (09:06→20:24)
[2016-05-18] MEDS: NICOTINE 21 MG/24 HR PATCH TD SCH (09:06)
[2016-05-18] MEDS: REMOVE OLD PATCH TD SCH (09:06)
[2016-05-18] MEDS: ENOXAPARIN SODIUM 30 MG/0.3 ML SYRINGE SQ SCH (09:55)
--- NOTE | 2016-05-18 13:28 | HHI.PR ---
Subjective Remarks No new complaints. Objective Vitals Vital Signs Date Time Temp Pulse Resp B/P Pulse Ox O2 Delivery O2 Flow Rate FiO2 05/18/16 10:12 98 21 05/18/16 08:04 98.2 95 17 100/52 99 05/18/16 01:48 98.1 106 16 109/56 98 05/18/16 00:06 16 05/17/16 20:00 99.2 106 17 105/54 99 05/17/16 17:27 99 21 05/17/16 16:00 98.4 106 20 111/53 100 05/17/16 05/17/16 05/18/16 15:00 23:00 07:00 Intake Total 400 ml 360 ml 120 ml Output Total 400 ml Balance 0 ml 360 ml 120 ml Intake Oral 400 ml 360 ml 120 ml Output Urine Total 400 ml # Voids 2 2 1 # Bowel Movements 0 0 Result Diagram: 05/18/16 0553 05/18/16 0553 Other Results Laboratory Tests Test 05/17/16 05/18/16 06:15 05:53 Hemoglobin 8.1 GM/DL 7.4 GM/DL Hematocrit 23.9 % 21.3 % White Blood Count 7.8 TH/MM3 Red Blood Count 2.13 MIL/MM3 Mean Corpuscular Volume 100.1 FL Mean Corpuscular Hemoglobin 34.6 PG Mean Corpuscular Hemoglobin 34.5 % Concent Red Cell Distribution Width 13.9 % Platelet Count 193 TH/MM3 Mean Platelet Volume 8.6 FL Neutrophils (%) (Auto) 62.3 % Lymphocytes (%) (Auto) 21.3 % Monocytes (%) (Auto) 14.8 % Eosinophils (%) (Auto) 1.2 % Basophils (%) (Auto) 0.4 % Neutrophils # (Auto) 4.9 TH/MM3 Lymphocytes # (Auto) 1.7 TH/MM3 Monocytes # (Auto) 1.2 TH/MM3 Eosinophils # (Auto) 0.1 TH/MM3 Basophils # (Auto) 0.0 TH/MM3 CBC Comment DIFF FINAL Differential Comment Sodium Level 136 MEQ/L Potassium Level 4.3 MEQ/L Chloride Level 102 MEQ/L Carbon Dioxide Level 30.7 MEQ/L Anion Gap 3 MEQ/L Blood Urea Nitrogen 11 MG/DL Creatinine 0.62 MG/DL Estimat Glomerular Filtration 97 ML/MIN Rate Random Glucose 114 MG/DL Calcium Level 8.1 MG/DL Magnesium Level 2.2 MG/DL Imaging Last Impressions Chest X-Ray 05/16/16 0105 Signed Impressions: Service Date/Time: Monday, May 16, 2016 01:59 - CONCLUSION: Normal examination. Dion Sales MD Hip and Pelvis X-Ray 05/16/16 0000 Signed Impressions: Service Date/Time: Monday, May 16, 2016 02:01 - CONCLUSION: Comminuted intertrochanteric fracture of the right hip. Dion Sales MD Femur X-Ray 05/16/16 0000 Signed Impressions: Service Date/Time: Monday, May 16, 2016 11:08 - CONCLUSION: Postoperative changes are seen status post fixation of a right proximal femur fracture. Earl Gutierrez MD Objective Remarks General: NAD, AAOx3 Chest: CTA Cardiac: Regular Abd: +BS, soft ND/NT Ext: bandages are c/d/i to right thigh A/P Problem List: (1) Fracture of right femur Status: Acute Plan: - Pt presented with right hip pain after trip and fall over dog leash. - She was drinking EtOH - Pt was found to have a intertrochanteric fx right femur - Pt underwent right femur reduction and intramedullary nail fixation on 05/16/[address] Spencer. - [place] prn - PT - Lovenox - Constipation precautions - IS - ASA/Plavix resumed on 05/18/16 - anticipate d/c to SNF 05/19/16 (2) Diabetes Status: Chronic Plan: - insulin pump - SSI (3) Hypothyroid Status: Chronic Plan: - Cont home meds (4) CAD (coronary artery disease) Status: Chronic Plan: - ASA/Plavix resumed on 05/18/16 (5) S/P IVC filter Status: Chronic Plan: - Pt had IVC filter placed earlier this yr for "DVT" in right leg - Denies current blood thinner use except for asa/Plavix Assessment and Plan Patient examined. Assessment and plan formulated with Thania Sunshine PA-C. I agree with the above. Problem Qualifiers (1) Fracture of right femur: Qualified Code: S72.141A - Closed displaced intertrochanteric fracture of right femur, initial encounter (2) Diabetes: (3) CAD (coronary artery disease): Qualified Code: I25.10 - Coronary artery disease involving [place] heart without angina pectoris, unspecified vessel or lesion type Thania Sunshine May 18, 2016 13:28 Walt Kerr DO May 18, 2016 14:51
[2016-05-18] MEDS: LATANOPROST 0.005% OPHT SOLN 2.5 ML BTL EACH EYE SCH (20:25)
[2016-05-19 00:28] VITALS: BP 141/66; PULSE 111; RESP 15; TEMP 98.5; O2SAT 98
[2016-05-19] MEDS: ACETAMINOPHEN/HYDROcodone 325 MG/7.5 MG TAB PO PRN ×2 (05:17→14:45)
[2016-05-19] MEDS: LEVOTHYROXINE SODIUM 100 MCG TAB PO SCH (05:17)
[2016-05-19] MEDS: INSULIN ASPART SUPPLEMENTAL SCALE SQ SCH ×3 (06:22→16:00)
--- NOTE | 2016-05-19 06:56 | PD.ORT.PN ---
Subjective Subjective Remarks Sitting bedside in recliner with no new complaints Objective Vitals Vital Signs Date Time Temp Pulse Resp B/P Pulse Ox O2 Delivery O2 Flow Rate FiO2 05/19/16 00:28 98.5 111 15 141/66 98 05/18/16 23:00 97 21 05/18/16 20:38 99 Room Air 05/18/16 20:21 97.9 106 16 125/57 99 05/18/16 16:00 97.9 110 16 107/54 100 05/18/16 12:04 98.1 90 16 118/54 98 05/18/16 10:12 98 21 05/18/16 08:04 98.2 95 17 100/52 99 I/O 05/18/16 05/18/16 05/18/16 05/19/16 05/19/16 05/19/16 07:00 15:00 23:00 07:00 15:00 23:00 Intake Total 120 ml 1080 ml 240 ml 240 ml Balance 120 ml 1080 ml 240 ml 240 ml Intake Oral 120 ml 1080 ml 240 ml 240 ml # Voids 1 6 2 2 # Bowel Movements 0 0 1 0 Result Diagram: 05/18/16 0553 05/18/16 0553 Objective Remarks Right lower extremity: Clean dry dressings intact. Strong dorsiflexion and plantar flexion of foot Assessment & Plan Assessment and Plan 1) s/p IMN R subtroch femur fx POD2 PT - 50% right lower extremity Daily dressing changes lovenox Incentive spirometry d/c planning home vs snf f/up dr. vega 2 weeks MARTHA BIGGS PA-C May 19, 2016 06:56
[2016-05-19 08:01] VITALS: BP 100/55; PULSE 101; RESP 18; TEMP 97.6; O2SAT 99
[2016-05-19 08:04] LABS: AUTOMATED NEUTROPHIL # 6.3 TH/MM3 (1.8-7.7); BASOPHIL % 0.4 % (0.0-2.0); EOSINOPHIL # 0.1 TH/MM3 (0-0.4); HEMATOCRIT 22.7 % (35.0-46.0); HEMO FLAGS DIFF FINAL; LYMPH % 14.5 % (9.0-44.0); LYMPHOCYTE # 1.3 TH/MM3 (1.0-4.8); MEAN CELL VOLUME 99.9 FL (80.0-100.0); MEAN CORPUSCULAR HEMOGLOBIN 34.4 PG (27.0-34.0); MEAN CORPUSCULAR HGB CONC 34.5 % (32.0-36.0); MONO % 15.9 % (0.0-8.0); NEUT % 68.2 % (16.0-70.0); PLATELET COUNT 255 TH/MM3 (150-450); RED BLOOD COUNT 2.27 MIL/MM3 (4.00-5.30); RED CELL DISTRIBUTION WIDTH 13.7 % (11.6-17.2); WHITE BLOOD COUNT 9.2 TH/MM3 (4.0-11.0)
[2016-05-19] MEDS: CALCIUM/VITAMIN D 250 MG/125 U TAB PO SCH ×3 (08:18→17:47)
[2016-05-19] MEDS: CHOLECALCIFEROL (VIT D3) 5000 UNIT CAP PO SCH (08:18)
[2016-05-19] MEDS: DOCUSATE SODIUM 100 MG CAP PO SCH (08:18)
[2016-05-19] MEDS: PRAVASTATIN SOD 40 MG TAB PO SCH (08:18)
[2016-05-19] MEDS: REMOVE OLD PATCH TD SCH (08:19)
[2016-05-19] MEDS: NICOTINE 21 MG/24 HR PATCH TD SCH (08:19)
[2016-05-19] MEDS: MAGNESIUM HYDROXIDE SUSP 30 ML CUP PO PRN (08:22)
[2016-05-19 08:32] LABS: BICARBONATE 28.8 MEQ/L (21.0-32.0)
[2016-05-19] MEDS ORDERED: RIVAROXABAN 10 MG TAB PO SCH (09:00)
[2016-05-19] MEDS: LISINOPRIL 5 MG TAB PO SCH (09:00)
[2016-05-19] MEDS: SODIUM CHLORIDE 0.9% FLUSH 5 ML FLUSH IVF SCH (09:00)
[2016-05-19 12:15] VITALS: BP 106/64; PULSE 94; RESP 16; TEMP 98.1; O2SAT 98
--- NOTE | 2016-05-19 14:38 | HHI.DCPOC ---
Discharge Care Plan Diagnosis: (1) Fracture of right femur (2) Hypothyroid (3) HTN (hypertension) (4) Diabetes (5) CAD (coronary artery disease) Goals to Promote Your Health * To prevent worsening of your condition and complications * To maintain your health at the optimal level Directions to Meet Your Goals Take your medications as prescribed Follow your dietary instruction Follow activity as directed Keep your appointments as scheduled Take your immunizations and boosters as scheduled If your symptoms worsen call your PCP, if no PCP go to Urgent Care Center or Emergency Room Smoking is Dangerous to Your Health. Avoid second hand smoke Call the 24-hour hour crisis hotline for domestic abuse at Thania Sunshine May 19, 2016 14:38 Walt Kerr DO May 22, 2016 22:45
--- NOTE | 2016-05-19 14:38 | HHI.DS ---
Discharge Summary Admission Date May 16, 2016 at 03:48 Discharge Date: May 19, 2016 Admitting Diagnosis fracture right femur (1) Fracture of right femur Diagnosis: Principal (2) Diabetes Diagnosis: Secondary (3) Hypothyroid Diagnosis: Secondary (4) CAD (coronary artery disease) Diagnosis: Secondary (5) S/P IVC filter Diagnosis: Secondary Consultants Dr. Savage Spencer - Orthopedic Surgery Procedures Right femur reduction and intramedullary nail fixation on 05/16/[address] Spencer. Brief History Pt is 66 yo with cad, htn, dm who presents with right hip pain after trip over dog leash. etoh noted in her system. She is found to have right intertroch fx. She is seen now in [facility]she is waking up. Her bg is 133 and her insulin pump still attached. no cp or sob. her vss are stable on monitor. No loc in the fall. CBC/BMP: 05/19/16 0740 05/19/16 0740 Significant Findings Laboratory Tests Test 05/17/16 05/18/16 05/19/16 06:15 05:53 07:40 Hemoglobin 8.1 GM/DL 7.4 GM/DL 7.8 GM/DL (11.6-15.3) (11.6-15.3) (11.6-15.3) Hematocrit 23.9 % 21.3 % 22.7 % (35.0-46.0) (35.0-46.0) (35.0-46.0) Red Blood Count 2.13 MIL/MM3 2.27 MIL/MM3 (4.00-5.30) (4.00-5.30) Mean Corpuscular Volume 100.1 FL (80.0-100.0) Mean Corpuscular Hemoglobin 34.6 PG 34.4 PG (27.0-34.0) (27.0-34.0) Monocytes (%) (Auto) 14.8 % 15.9 % (0.0-8.0) (0.0-8.0) Monocytes # (Auto) 1.2 TH/MM3 1.5 TH/MM3 (0-0.9) (0-0.9) Anion Gap 3 MEQ/L (5-15) Random Glucose 114 MG/DL 173 MG/DL (74-106) (74-106) Calcium Level 8.1 MG/DL (8.5-10.1) Estimat Glomerular Filtration 69 ML/MIN (>89) Rate Imaging Last Impressions Chest X-Ray 05/16/16 0105 Signed Impressions: Service Date/Time: Monday, May 16, 2016 01:59 - CONCLUSION: Normal examination. Dion Sales MD Hip and Pelvis X-Ray 05/16/16 0000 Signed Impressions: Service Date/Time: Monday, May 16, 2016 02:01 - CONCLUSION: Comminuted intertrochanteric fracture of the right hip. Dion Sales MD Femur X-Ray 05/16/16 0000 Signed Impressions: Service Date/Time: Monday, May 16, 2016 11:08 - CONCLUSION: Postoperative changes are seen status post fixation of a right proximal femur fracture. Earl Gutierrez MD PE at Discharge General: NAD, AAOx3 Chest: CTA Cardiac: Regular Abd: +BS, soft ND/NT Ext: bandages are c/d/i to right thigh Hospital Course Fracture of right femur Pt presented with right hip pain after trip and fall over dog leash. She was drinking EtOH. Pt was found to have a intertrochanteric right femur fracture. Pt underwent right femur reduction and intramedullary nail fixation on 05/16/[address] Spencer. Pt did well post-operatively but will need continued PT at SNF. Ortho has recommended 50% WB to the right lower extremity and daily dressing changes. [place] prn. She was recommended to continue on Xarelto 10mg daily. Pt is refusing the Xarelto and wants to go back on her home dose of ASA/Plavix. Pt will need to followup with Dr. Spencer in 2 weeks Pt will need to followup with Dr. Orourke, 1 week following discharge from SNF. Pt Condition on Discharge: Stable Discharge Disposition: Discharge to SNF Discharge Instructions DIET: Follow Instructions for: Heart Healthy Diet Activities you can perform: Regular-No Restrictions Follow up Referrals: Orthopedics - 05/30/16 @ [facility] with Savage Spencer MD PCP Follow-up - [address] Loy Orourke New Medications: Aspirin (Aspirin) 81 Mg Chew 81 MG CHEW DAILY cad Days 30 Ref 0 TAB Clopidogrel (Plavix) 75 Mg Tab 75 MG PO DAILY Blood Clot Prevention #30 Ref 0 TAB Hydrocodone-Acetaminophen ([place]) 7.5-325 mg Tab 1 TAB PO Q4H PRN PAIN #60 Ref 0 TAB Walker/Adult/Folding (Walker/Adult/Folding) 1 Mis Mis 1 EA .ROUTE DIRECTED #1 Ref 0 EA Continued Medications: Insulin Aspart Inj (Novolog Inj) 1,000 Unit/10 Ml Vial 0 SQ DIRECTED Sliding Scale as directed. Blood Sugar Management #10 Ref 0 ML Latanoprost Opth Drops (Latanoprost Opth Drops) 0.005% Drops 1 DROP EACH EYE HS Refrigerate until opened. Glaucoma #2.5 Ref 0 ML Levothyroxine (Levothyroxine) 100 Mcg Tab 100 MCG PO DAILY Thyroid #30 Ref 0 TAB Lisinopril (Lisinopril) 2.5 Mg Tab 2.5 MG PO DAILY #30 Ref 0 TAB Pravastatin (Pravastatin) 40 Mg Tab 40 MG PO DAILY Cholesterol Management #30 Ref 0 TAB Discontinued Medications: Aspirin DR (Aspirin 81) 81 Mg Tabdr 81 MG PO DAILY Ref 0 TAB Clopidogrel (Plavix) 75 Mg Tab 75 MG PO DAILY Blood Clot Prevention #30 Ref 0 TAB Furosemide (Furosemide) 20 Mg Tab 20 MG PO DAILY #30 Ref 0 TAB Additional Information Patient examined. Assessment and plan formulated with Thania Sunshine PA-C. I agree with the above. Thania Sunshine May 19, 2016 14:38 Walt Kerr DO May 22, 2016 22:44
[2016-05-19] MEDS ORDERED: PLAV75TA29 PO (16:28)
[2016-05-19] MEDS ORDERED: ASPI81CH CHEW (16:28)
== END 2016-05-19 19:57 | DRG 482 ==
LOC: NEPE 00:56 → NEDA 03:48 → N06A 06:04
PROVIDERS: ADMIT Hospitalist; ATTEND Hospitalist
PROC: 0QS636Z Reposition Right Upper Femur with Intramedullary Internal Fixation Device, Percutaneous Approach (ICD-10-PCS; principal; 2016-05-16 10:14)
DX: S72.141A Displaced intertrochanteric fracture of right femur, initial encounter for closed fracture (principal); I10 Essential (primary) hypertension; I25.10 Atherosclerotic heart disease of native coronary artery without angina pectoris; W01.0XXA Fall on same level from slipping, tripping and stumbling without subsequent striking against object, initial encounter; Y93.K1 Activity, walking an animal; Y92.9 Unspecified place or not applicable; S72.21XA Displaced subtrochanteric fracture of right femur, initial encounter for closed fracture; J44.9 Chronic obstructive pulmonary disease, unspecified; E10.9 Type 1 diabetes mellitus without complications; Z96.41 Presence of insulin pump (external) (internal); E03.9 Hypothyroidism, unspecified; F17.210 Nicotine dependence, cigarettes, uncomplicated; Z95.5 Presence of coronary angioplasty implant and graft; Z88.1 Allergy status to other antibiotic agents; Z88.0 Allergy status to penicillin; Z88.2 Allergy status to sulfonamides; Z88.8 Allergy status to other drugs, medicaments and biological substances; Z86.718 Personal history of other venous thrombosis and embolism; Z79.4 Long term (current) use of insulin; Z79.82 Long term (current) use of aspirin
CPT/HCPCS: 51702; 71010; 73502; 73552; 76000; 80048; 80320; 81001; 82306; 82948; 83735; 85014; 85018; 85025; 85610; 85730; 93005; 96374; 96375; 96376; C1713; J0131; J1170; J1580; J1650; J2250; J2270; J2405; J3010

== ENCOUNTER 2017-05-29 13:03 | Inpatient (IN) | payer MEDICARE ==
[~2017-05-29] VITALS: Ht 162.6 cm; Wt 52.2 kg
[~2017-05-29 13:03] MED LIST changes: +ASPI-516 CHEW; -ASPI81 PO; +HYDR-3288 PO; -LATA.005%O OU; +LATA0.002 EACH EYE; +LEVO100T5 PO; -LEVO100T60 PO; +LISI2.5T3 PO; -NOVOLOGP2 IMPLANPUMP; +NOVOLOGP2 SQ; +PLAV75TA29 PO; +PRAV40TA2 PO; -SIMV20 PO; +WALKER/ADULT/FO1 MIS
[2017-05-29] MEDS ORDERED: VANCOMYCIN INJ 1,000 MG in SODIUM CHLOR 0.9% 250 ML INJ 250 ML IV STA (13:17)
[2017-05-29] MEDS ORDERED: SODIUM CHLOR 0.9% 1000 ML INJ 1,000 ML IV ONE (13:17)
[2017-05-29] MEDS ORDERED: AZTREONAM INJ 2,000 MG in SODIUM CHLORIDE 0.9% INJ 100 ML IV STA (13:17)
[2017-05-29] MEDS ORDERED: SODIUM CHLOR 0.9% 1000 ML INJ 800 ML IV ONE (13:17)
[2017-05-29] MEDS ORDERED: metroNIDAZOLE 500 MG INJ 100 ML IV STA (13:17)
[2017-05-29 13:26] VITALS: BP 162/77; PULSE 77; RESP 18; TEMP 94.2; O2SAT 100
[2017-05-29] MEDS ORDERED: SODIUM CHLORIDE 23.4% INJ 77 MEQ in DEXTROSE 10% INJ 1,000 ML IV SCH (13:30)
[2017-05-29] MEDS ORDERED: DEXTROSE 50% IN WATER 50 ML SYRINGE IV PUSH ONE (13:30)
[2017-05-29 13:54] LABS: AUTOMATED NEUTROPHIL # 8.1 TH/MM3 (1.8-7.7); BASOPHIL # 0.1 TH/MM3 (0-0.2); BASOPHIL % 0.9 % (0.0-2.0); EOSINOPHIL # 0.1 TH/MM3 (0-0.4); EOSINOPHIL % 0.5 % (0.0-4.0); HEMATOCRIT 37.4 % (35.0-46.0); HEMOGLOBIN 12.5 GM/DL (11.6-15.3); LYMPH % 11.8 % (9.0-44.0); LYMPHOCYTE # 1.2 TH/MM3 (1.0-4.8); MEAN CELL VOLUME 93.8 FL (80.0-100.0); MEAN CORPUSCULAR HEMOGLOBIN 31.2 PG (27.0-34.0); MEAN CORPUSCULAR HGB CONC 33.3 % (32.0-36.0); MEAN PLATELET VOLUME 8.4 FL (7.0-11.0); MONO % 10.4 % (0.0-8.0); MONOCYTE # 1.1 TH/MM3 (0-0.9); NEUT % 76.4 % (16.0-70.0); PLATELET COUNT 364 TH/MM3 (150-450); RED BLOOD COUNT 3.99 MIL/MM3 (4.00-5.30); RED CELL DISTRIBUTION WIDTH 16.5 % (11.6-17.2); WHITE BLOOD COUNT 10.6 TH/MM3 (4.0-11.0)
--- NOTE | 2017-05-29 13:54 | RADRPT ---
EXAM DATE/TIME: 05/29/2017 13:32 [facility] COMPARISON: CHEST SINGLE AP, May 16, 2016, 1:59. INDICATIONS : Fever, Hyperglycemia MEDICAL HISTORY : Diabetes mellitus type II. SURGICAL HISTORY : None. ENCOUNTER: Initial ACUITY: 1 day PAIN SCORE: 0/10 LOCATION: Bilateral chest FINDINGS: A single view of the chest demonstrates the lungs to be symmetrically aerated without evidence of mas s, infiltrate or effusion. The cardiomediastinal contours are unremarkable. Osseous structures are intact. Atherosclerotic calcifications are present in the aorta. There are multiple overlying cardiac leads. CONCLUSION: No acute disease. There is no evidence of pneumonia. Nicolás Garcia MD on May 29, 2017 at 13:50 Board Certified Radiologist. This report was verified electronically.
[2017-05-29 14:02] LABS: PROTHROMBIN TIME - PATIENT 10.2 SEC (9.8-11.6)
[2017-05-29 14:12] LABS: AST (GOT) 24 U/L (15-37); BICARBONATE 26.1 MEQ/L (21.0-32.0); BLOOD UREA NITROGEN 19 MG/DL (7-18); CALCIUM 8.8 MG/DL (8.5-10.1); CHLORIDE 103 MEQ/L (98-107); CREATININE 0.87 MG/DL (0.50-1.00); GLOMERULAR FILTRATION RATE 65 ML/MIN (>89); GLUCOSE,RANDOM 52 MG/DL (74-106); LIPASE 168 U/L (73-393); MAGNESIUM 2.1 MG/DL (1.5-2.5); SODIUM (NA) 138 MEQ/L (136-145)
[2017-05-29 14:16] LABS: ALKALINE PHOSPHATASE 73 U/L (45-117); ALT (GPT) 32 U/L (10-53); LACTIC ACID SEPSIS PROTOCOL 3.2 mmol/L (0.4-2.0); TOTAL BILIRUBIN ADULT 0.3 MG/DL (0.2-1.0); TOTAL PROTEIN 7.4 GM/DL (6.4-8.2); TROPONIN I LESS THAN 0.02 NG/ML (0.02-0.05)
[2017-05-29 15:09] VITALS: BP 144/67; PULSE 74; RESP 21; TEMP 94.2; O2SAT 100
--- NOTE | 2017-05-29 15:12 | PD ---
HPI Chief Complaint: Diabetic Time Seen by Provider: 13:17 Travel History International Travel<30 days: No Contact w/Intl Traveler<30days: No Traveled to known affect area: No History of Present Illness HPI 67-year-old female complains of hypoglycemia and arrives by EMS. Her blood glucose was 600 this morning and she increased her insulin at a loss consciousness leading to EMS activation. On scene her blood glucose was 15 and after a bolus of glucose increased to the 100s and then decreased to 81 upon arrival here. The tachycardia observed as well as a temperature of 94 rectal and sepsis bundle initiated. The patient has no chest pain or shortness of breath however reports contact with a sick with was reported to have been a virus and an otitis media. Case and is of moderate severity and without modifying factor. Onset sudden and constant. She has no chest pain or shortness of breath. No nausea vomiting or diarrhea. No abdominal pain. PFSH Past Medical History Cancer: No Cardiovascular Problems: Yes High Cholesterol: Yes Chest Pain: No Diabetes: Yes Diminished Hearing: No Endocrine: Yes Gastrointestinal Disorders: No Glaucoma: Yes Genitourinary: No Hiatal Hernia: Yes Hypertension: Yes Immune Disorder: No Implanted Vascular Access Dvce: Yes (ivc filter) Musculoskeletal: No Neurologic: No Psychiatric: No Reproductive: No Respiratory: Yes Integumentary: No Thyroid Disease: Yes ?: Not : 0 Para: 0 Past Surgical History Abdominal Surgery: Yes (appendectomy hernia repair stents placed in lower abd) Appendectomy: Yes Body Medical Devices: stents in the lower abd and diabetes device Cardiac Surgery: No Ear Surgery: No Endocrine Surgery: Yes (INSULIN PUMP) Eye Surgery: Yes (LASER) Genitourinary Surgery: No Gynecologic Surgery: No Insulin Pump: Yes Oral Surgery: No Thoracic Surgery: No Other Surgery: Yes Social History Alcohol Use: Yes (today) Tobacco Use: Yes (1ppd) Substance Use: No Allergies-Medications (Allergen,Severity, Reaction): Coded Allergies: Sulfa (Sulfonamide Antibiotics) (Unverified Allergy, Severe, trouble breathing, 05/29/17) cephalexin (Unverified Allergy, Severe, trouble breathing, 05/29/17) naproxen (Unverified Allergy, Severe, HIVES, , 05/29/17) penicillin G (Unverified Allergy, Severe, trouble breathing, 05/29/17) bethanechol (Unverified Allergy, Intermediate, 05/29/17) celecoxib (Unverified Allergy, Intermediate, 05/29/17) Reported Meds & Prescriptions Reported Meds & Active Scripts Active Aspirin 81 Mg Chew 81 Mg CHEW DAILY 30 Days Plavix (Clopidogrel Bisulfate) 75 Mg Tab 75 Mg PO DAILY Walker/Adult/Folding (Device) 1 Mis Mis 1 Ea .ROUTE DIRECTED Reported Ondansetron (Ondansetron HCl) 4 Mg Tab Carvedilol 3.125 Mg Tab 3.125 Mg PO BID Lisinopril 2.5 Mg Tab 2.5 Mg PO DAILY Novolog Inj (Insulin Aspart) 1,000 Unit/10 Ml Vial 0 SQ DIRECTED Sliding Scale as directed. Latanoprost Opth Drops (Latanoprost) 0.005% Drops 1 Drop EACH EYE HS Refrigerate until opened. Pravastatin 40 Mg Tab 40 Mg PO DAILY Levothyroxine (Levothyroxine Sodium) 100 Mcg Tab 100 Mcg PO DAILY Review of Systems Except as stated in HPI: all other systems reviewed are Neg General / Constitutional: Positive: Fever Physical Exam Narrative GENERAL: 67 yo female pleasant well-nourished well-developed SKIN: Warm and dry. HEAD: Atraumatic. Normocephalic. EYES: Pupils equal and round. No scleral icterus. No injection or drainage. ENT: No nasal bleeding or discharge. Mucous membranes pink and moist. NECK: Trachea midline. No JVD. CARDIOVASCULAR: Regular rate and rhythm. RESPIRATORY: No accessory muscle use. Clear to auscultation. Breath sounds equal bilaterally. GASTROINTESTINAL: Abdomen is soft. There is no focus tenderness. MUSCULOSKELETAL: Extremities without clubbing, cyanosis, or edema. No obvious deformities. NEUROLOGICAL: Upon arrival the patient is a and O 3. The cranial nerves III through XII are normal. The patient moving all extremities normally.. PSYCHIATRIC: Cooperative. Denies suicidal and deviation Data Data Last Documented VS Vital Signs Date Time Temp Pulse Resp B/P (MAP) Pulse Ox O2 Delivery O2 Flow Rate FiO2 05/29/17 15:28 95.1 05/29/17 15:09 74 21 100 Room Air Vital signs reviewed Orders Orders Sepsis Workup Initiated (05/29/17 ) Complete Blood Count With Diff (05/29/17 13:17) Comprehensive Metabolic Panel (05/29/17 13:17) Prothrombin Time / Inr (Pt) (05/29/17 13:17) Act Partial Throm Time (Ptt) (05/29/17 13:17) Lactic Acid Sepsis Protocol (05/29/17 13:17) Magnesium (Mg) (05/29/17 13:17) Lipase (05/29/17 13:17) Ckmb (Isoenzyme) Profile (05/29/17 13:17) Troponin I (05/29/17 13:17) Urinalysis - C+S If Indicated (05/29/17 13:17) Blood Culture (05/29/17 13:17) Chest, Single Ap (05/29/17 13:17) Blood Glucose (05/29/17 13:17) Ecg Monitoring (05/29/17 13:17) Iv Access Insert/Monitor (05/29/17 13:17) Oximetry (05/29/17 13:17) Oxygen Administration (05/29/17 13:17) Vancomycin Inj (Vancomycin Inj) (05/29/17 13:17) Aztreonam Inj (Azactam Inj) (05/29/17 13:17) Metronidazole 500 Mg Inj (Flagyl 500 Mg (05/29/17 13:17) Sodium Chlor 0.9% 1000 Ml Inj (Ns 1000 M (05/29/17 13:17) Sodium Chlor 0.9% 1000 Ml Inj (Ns 1000 M (05/29/17 13:17) Dextrose 50% In Arjun (Syr) Inj (D50w (Syr (05/29/17 13:30) Dextrose 10% Inj (D... W/Sodium Chloride (05/29/17 13:30) Warming [place] / Warming Syst PRN (05/29/17 13:23) Blood Glucose (05/29/17 13:29) Blood Glucose (05/29/17 13:59) Blood Glucose (05/29/17 14:29) Blood Glucose (05/29/17 14:59) CKMB (05/29/17 13:30) CKMB% (05/29/17 13:30) Influenzae A/B Antigen (05/29/17 15:13) Admit Order (Ed Use Only) (05/29/17 15:43) Labs Laboratory Tests Test 05/29/17 13:30 05/29/17 15:00 White Blood Count 10.6 TH/MM3 Red Blood Count 3.99 MIL/MM3 Hemoglobin 12.5 GM/DL Hematocrit 37.4 % Mean Corpuscular Volume 93.8 FL Mean Corpuscular Hemoglobin 31.2 PG Mean Corpuscular Hemoglobin Concent 33.3 % Red Cell Distribution Width 16.5 % Platelet Count 364 TH/MM3 Mean Platelet Volume 8.4 FL Neutrophils (%) (Auto) 76.4 % Lymphocytes (%) (Auto) 11.8 % Monocytes (%) (Auto) 10.4 % Eosinophils (%) (Auto) 0.5 % Basophils (%) (Auto) 0.9 % Neutrophils # (Auto) 8.1 TH/MM3 Lymphocytes # (Auto) 1.2 TH/MM3 Monocytes # (Auto) 1.1 TH/MM3 Eosinophils # (Auto) 0.1 TH/MM3 Basophils # (Auto) 0.1 TH/MM3 CBC Comment DIFF FINAL Differential Comment Prothrombin Time 10.2 SEC Prothromb Time International Ratio 1.0 RATIO Activated Partial Thromboplast Time 24.5 SEC Blood Urea Nitrogen 19 MG/DL Creatinine 0.87 MG/DL Random Glucose 52 MG/DL Total Protein 7.4 GM/DL Albumin 4.0 GM/DL Calcium Level 8.8 MG/DL Magnesium Level 2.1 MG/DL Alkaline Phosphatase 73 U/L Aspartate Amino Transf (AST/SGOT) 24 U/L Alanine Aminotransferase (ALT/SGPT) 32 U/L Total Bilirubin 0.3 MG/DL Sodium Level 138 MEQ/L Potassium Level 3.6 MEQ/L Chloride Level 103 MEQ/L Carbon Dioxide Level 26.1 MEQ/L Anion Gap 9 MEQ/L Estimat Glomerular Filtration Rate 65 ML/MIN Lactic Acid Level 3.2 mmol/L Total Creatine Kinase 252 U/L Creatine Kinase MB 8.2 NG/ML Creatine Kinase MB % 3.3 % Troponin I LESS THAN 0.02 NG/ML Lipase 168 U/L Urine Color LIGHT-YELLOW Urine Turbidity CLEAR Urine pH 5.5 Urine Specific [place] 1.006 Urine Protein NEG mg/dL Urine Glucose (UA) NEG mg/dL Urine Ketones NEG mg/dL Urine Occult Blood NEG Urine Nitrite NEG Urine Bilirubin NEG Urine Urobilinogen LESS THAN 2.0 MG/DL Urine Leukocyte Esterase NEG Urine RBC LESS THAN 1 /hpf Urine WBC 1 /hpf Urine Bacteria OCC /hpf Urine Mucus FEW /lpf Microscopic Urinalysis Comment CATH-CULTURE IND MDM Medical Decision Making Medical Screen Exam Complete: Yes Emergency Medical Condition: Yes Medical Record Reviewed: Yes Differential Diagnosis Sepsis, severe sepsis, multiorgan failure, pneumonia, UTI, hypoglycemia Narrative Course CBC & BMP Diagram 05/29/17 13:30 Total Protein 7.4, Albumin 4.0, Calcium Level 8.8, Magnesium Level 2.1, Alkaline Phosphatase 73, Aspartate Amino Transf (AST/SGOT) 24, Alanine Aminotransferase (ALT/SGPT) 32, Total Bilirubin 0.3 The lipase is 164 Lactic acid 3.2 Troponins less than 0.02 The creatinine kinase 252 The repeat blood glucose is 56 The patient has been started on D10 half-normal at 50 cc an hour. She received an amp of dextrose upon arrival here and drank orange juice. At 310pm the heart rate is 77 and the patient's speech memory mentation are normal. The blood pressure is 160/70 and the patient will be admitted for ongoing dextrose infusion fingerstick checks and IV antibiotics. Vanco, flagyl, and azactam started. d/w Dr Riddle and Dr Elam. Pt to go to Dr Riddle who spoke with Dr Elam. Critical Care Narrative Aggregate critical care time was 40 minutes. Time to perform other separately billable procedures was not included in the critical care time. My time did not include minutes spent treating any other patients simultaneously or on activities that did not directly contribute to the patient's treatment. The services I provided to this patient were to treat and/or prevent clinically significant deterioration that could result in: Septic shock, multiorgan dysfunction I provided critical care services requiring my management, as noted below: Chart data review, documentation time, medication orders and management, vital sign assessments/reviewing monitor data, ordering and reviewing lab tests, ordering and interpreting/reviewing x-rays and diagnostic studies, care of the patient and discussion of the patient with the admitting physicians. Sepsis Criteria SIRS Criteria (2 or more): Temp > 100.9 or < 96.8 Diagnosis Primary Impression: Hypothermia Qualified Codes: T68.XXXA - Hypothermia, initial encounter Additional Impression: Hypoglycemia Admitting Information Admitting Physician Requests: Admit Christian Melo MD May 29, 2017 15:12
[2017-05-29] MEDS ORDERED: ONDA4TAB15 (15:18)
[2017-05-29] MEDS ORDERED: CARV3.12 PO (15:18)
[2017-05-29 15:28] VITALS: TEMP 95.1
[2017-05-29 15:57] LABS: BACTERIA, URINE OCC /hpf; BILIRUBIN, URINE NEG (NEG); BLOOD, URINE NEG (NEG); GLUCOSE,URINE NEG (NEG); KETONE, URINE NEG (NEG); MUCUS URINE FEW /lpf (OCC); NITRITE,URINE NEG (NEG); PH, URINE 5.5 (5.0-8.5); URINE COLOR LIGHT-YELLOW (YELLW/STRAW); URINE LEUKOCYTE ESTERASE NEG (NEG)
[2017-05-29 16:01] VITALS: TEMP 97.5
[2017-05-29] MEDS ORDERED: MAGNESIUM HYDROXIDE SUSP 30 ML CUP PO PRN (16:45)
[2017-05-29] MEDS ORDERED: ACETAMINOPHEN 325 MG TAB PO PRN (16:45)
[2017-05-29] MEDS ORDERED: NALOXONE HCL 0.4 MG/ML AMP IV PUSH PRN (16:45)
[2017-05-29] MEDS ORDERED: SODIUM CHLORIDE 0.9% FLUSH 10 ML FLUSH IV FLUSH PRN (16:45)
[2017-05-29] MEDS ORDERED: ONDANSETRON HCL 4 MG/2 ML VIAL IVP PRN (16:45)
[2017-05-29] MEDS ORDERED: D5-NS + KCL 20 MEQ INJ 1,000 ML IV SCH (17:00)
[2017-05-29] MEDS ORDERED: PILL SPLITTER OTHER PRN (17:15)
--- NOTE | 2017-05-29 17:42 | HHI.HP ---
HPI Service [facility] Hospitalists Primary Care Physician Loy Orourke M.D. Admission Diagnosis Hypoglycemia; Hypothermia Chief Complaint: hypoglycemia hypothermia Travel History International Travel<30 Days: No Contact w/Intl Traveler <30 Da: No Traveled to Known Affected Are: No History of Present Illness Patient is a pleasant 67-year-old female with long-standing history of type 1 diabetes. Patient states that she has had an insulin pump for over 30 years. Patient follows with endocrinology, Dr. Underwood. Patient states that she had a recent adjustment of the basal insulin settings of her insulin pump. Patient also gives herself bolused insulin via the pump based on her calculations of the carbohydrate content of her meals. Per patient she has had cough cold symptoms for the last few days. As usual when sick, her blood sugars have been running high. Patient reports that her blood sugars have been running as high as into the 600s. Consequently, patient used the insulin pump to bolus further doses of insulin. Patient had loss of consciousness, EMS was notified. Per report, EMT found the patient's blood glucose level to be 15 patient was given treatment, glucose, in the field. Upon arrival to the ER, patient was hypothermic with a rectal temperature of 94 . There was no fever or leukocytosis. Out of an abundance of caution, sepsis protocol was initiated by the ER. Patient was not hypotensive, and it does not appear that IV fluids were given. However, patient received aztreonam and vancomycin. Urine and blood cultures were obtained with results currently pending. In view of the patient's presenting hypothermia and concern of sepsis, I initially requested that the patient be admitted to the critical care medicine team and observed overnight in the ICU. Patient was evaluated by solutions analyst, Dr. Elam. Dr. Elam called me to discuss the case. Critical care felt that the patient's hypothermia and elevated lactic acid could be attributed to presenting hypoglycemia, and that the patient would be stable to go to a general medical floor under the care of the medical team. When I evaluated the patient, she was speaking normally and in no apparent distress. Patient complained of recent cough cold type symptoms with contact with a sick child. He shouldn't denied personally having cough, pain with urination, fever, chills, patient was eager to be discharged and asked for reassurance that she would be able to go home soon. Review of Systems Constitutional: DENIES: Diaphoretic episodes, Fatigue, Fever, Weight gain, Weight loss, Chills, Dizziness, Change in appetite, Night Sweats Endocrine: DENIES: Heat/cold intolerance, Polydipsia, Polyuria, Polyphagia Eyes: DENIES: Blurred vision, Diplopia, Eye inflammation, Eye pain, Vision loss , Photosensitivity, Double Vision Ears, nose, mouth, throat: DENIES: Tinnitus, Hearing loss, Vertigo, Nasal discharge, Oral lesions, Throat pain, Hoarseness, Ear Pain, Running Nose, Epistaxis, Sinus Pain, Toothache, Odynophagia Respiratory: DENIES: Apneas, Cough, Snoring, Wheezing, Hemoptysis, Sputum production, Shortness of breath Cardiovascular: DENIES: Chest pain, Palpitations, Syncope, Dyspnea on Exertion , PND, Lower Extremity Edema, Orthopnea, Claudication Gastrointestinal: DENIES: Abdominal pain, Black stools, Bloody stools, BRB per rectum, Constipation, Diarrhea, GERD, Nausea, Reflux, Vomiting, Difficulty Swallowing, Anorexia Genitourinary: DENIES: Urinary frequency, Urinary incontinence, Urgency, Hematuria, Dysuria, Nocturia Musculoskeletal: DENIES: Joint pain, Muscle aches, Stiffness, Joint Swelling, Back pain, Neck pain Integumentary: DENIES: Abnormal pigmentation, Pruritus, Rash, Nail changes, Breast masses, Breast skin changes, Nipple discharge Hematologic/lymphatic: DENIES: Bruising, Lymphadenopathy Immunologic/allergic: DENIES: Eczema, Urticaria Neurologic: DENIES: Abnormal gait, Headache, Localized weakness, Paresthesias, Seizures, Speech Problems, Tremor, Poor Balance Psychiatric: DENIES: Anxiety, Confusion, Mood changes, Depression, Hallucinations, Agitation, Suicidal Ideation, Homicidal Ideation, Delusions, History of Bipolar, History of Schizophrenia Past Family Social History Past Medical History 1) diabetes, type I - Long-standing history with insulin dependency by insulin pump - Patient follows with endocrinology, Dr. Underwood 2) proliferative retinopathy 3) chronic kidney disease, stage III 4) COPD 5) colon polyps 6) degenerative disc disease, cervical 7) osteoporosis 8) chronic right lower extremity DVT 9) gastroparesis 10) osteoarthritis 11) tobacco addiction Past Surgical History 1) appendectomy 2) colonoscopy and EGD 3) bilateral Lasik surgery 4) foot surgery, unspecified Reported Medications Reported Meds & Active Scripts Active Aspirin 81 Mg Chew 81 Mg CHEW DAILY 30 Days Plavix (Clopidogrel Bisulfate) 75 Mg Tab 75 Mg PO DAILY Walker/Adult/Folding (Device) 1 Mis Mis 1 Ea .ROUTE DIRECTED Reported Ondansetron (Ondansetron HCl) 4 Mg Tab Carvedilol 3.125 Mg Tab 3.125 Mg PO BID Lisinopril 2.5 Mg Tab 2.5 Mg PO DAILY Novolog Inj (Insulin Aspart) 1,000 Unit/10 Ml Vial 0 SQ DIRECTED Sliding Scale as directed. Latanoprost Opth Drops (Latanoprost) 0.005% Drops 1 Drop EACH EYE HS Refrigerate until opened. Pravastatin 40 Mg Tab 40 Mg PO DAILY Levothyroxine (Levothyroxine Sodium) 100 Mcg Tab 100 Mcg PO DAILY Allergies: Coded Allergies: Sulfa (Sulfonamide Antibiotics) (Unverified Allergy, Severe, trouble breathing, 05/29/17) cephalexin (Unverified Allergy, Severe, trouble breathing, 05/29/17) naproxen (Unverified Allergy, Severe, HIVES, , 05/29/17) penicillin G (Unverified Allergy, Severe, trouble breathing, 05/29/17) bethanechol (Unverified Allergy, Intermediate, 05/29/17) celecoxib (Unverified Allergy, Intermediate, 05/29/17) Family History - Father at age 73 due to unspecified cancer, peripheral vascular disease - Mother at age 91 unspecified cancer, diabetes - 8 brothers one from [place] at age 74 and another at age 54 due to CVA Social History - Current smoker - Denies alcohol use - Denies illicit street drugs - Patient is on disability Physical Exam Vital Signs Vital Signs Date Time Temp Pulse Resp B/P (MAP) Pulse Ox O2 Delivery O2 Flow Rate FiO2 05/29/17 16:01 97.5 05/29/17 15:28 95.1 05/29/17 15:09 94.2 74 21 144/67 (92) 100 Room Air 05/29/17 13:26 94.2 77 18 162/77 (105) 100 Room Air 05/29/17 13:26 100 Room Air 05/29/17 13:26 94.2 Physical Exam GENERAL: This is a well-nourished, well-developed patient, in no apparent distress. SKIN: No rashes, ecchymoses or lesions. Cool and dry. HEAD: Atraumatic. Normocephalic. No temporal or scalp tenderness. EYES: Pupils equal round and reactive. Extraocular motions intact. No scleral icterus. No injection or drainage. ENT: Nose without bleeding, purulent drainage or septal hematoma. Throat without erythema, tonsillar hypertrophy or exudate. Uvula midline. Airway patent. NECK: Trachea midline. No JVD or lymphadenopathy. Supple, nontender, no meningeal signs. CARDIOVASCULAR: Regular rate and rhythm without murmurs, gallops, or rubs. RESPIRATORY: Clear to auscultation. Breath sounds equal bilaterally. No wheezes , rales, or rhonchi. GASTROINTESTINAL: Abdomen soft, non-tender, nondistended. No hepato-splenomegaly , or palpable masses. No guarding. MUSCULOSKELETAL: Extremities without clubbing, cyanosis, or edema. No joint tenderness, effusion, or edema noted. No calf tenderness. Negative Homans sign bilaterally. NEUROLOGICAL: Awake and alert. Cranial nerves II through XII intact. Motor and sensory grossly within normal limits. Five out of 5 muscle strength in all muscle groups. Normal speech. Laboratory Laboratory Tests Test 05/29/17 13:30 05/29/17 15:00 White Blood Count 10.6 Red Blood Count 3.99 Hemoglobin 12.5 Hematocrit 37.4 Mean Corpuscular Volume 93.8 Mean Corpuscular Hemoglobin 31.2 Mean Corpuscular Hemoglobin Concent 33.3 Red Cell Distribution Width 16.5 Platelet Count 364 Mean Platelet Volume 8.4 Neutrophils (%) (Auto) 76.4 Lymphocytes (%) (Auto) 11.8 Monocytes (%) (Auto) 10.4 Eosinophils (%) (Auto) 0.5 Basophils (%) (Auto) 0.9 Neutrophils # (Auto) 8.1 Lymphocytes # (Auto) 1.2 Monocytes # (Auto) 1.1 Eosinophils # (Auto) 0.1 Basophils # (Auto) 0.1 CBC Comment DIFF FINAL Differential Comment Prothrombin Time 10.2 Prothromb Time International Ratio 1.0 Activated Partial Thromboplast Time 24.5 Blood Urea Nitrogen 19 Creatinine 0.87 Random Glucose 52 Total Protein 7.4 Albumin 4.0 Calcium Level 8.8 Magnesium Level 2.1 Alkaline Phosphatase 73 Aspartate Amino Transf (AST/SGOT) 24 Alanine Aminotransferase (ALT/SGPT) 32 Total Bilirubin 0.3 Sodium Level 138 Potassium Level 3.6 Chloride Level 103 Carbon Dioxide Level 26.1 Anion Gap 9 Estimat Glomerular Filtration Rate 65 Lactic Acid Level 3.2 Total Creatine Kinase 252 Creatine Kinase MB 8.2 Creatine Kinase MB % 3.3 Troponin I LESS THAN 0.02 Lipase 168 Urine Color LIGHT-YELLOW Urine Turbidity CLEAR Urine pH 5.5 Urine Specific [place] 1.006 Urine Protein NEG Urine Glucose (UA) NEG Urine Ketones NEG Urine Occult Blood NEG Urine Nitrite NEG Urine Bilirubin NEG Urine Urobilinogen LESS THAN 2.0 Urine Leukocyte Esterase NEG Urine RBC LESS THAN 1 Urine WBC 1 Urine Bacteria OCC Urine Mucus FEW Microscopic Urinalysis Comment CATH-CULTURE IND Date/Time Source Procedure Growth Status 05/29/17 13:35 Blood Peripheral Aerobic Blood Culture Pending Received 05/29/17 13:35 Blood Peripheral Anaerobic Blood Culture Pending Received 05/29/17 15:35 Nasal Aspirate Influenza Types A,B Antigen (SHANE) - Final NEGATIVE FOR FLU A AND B ANTIGEN.... Complete 05/29/17 15:00 Urine Catheterized Urine Urine Culture Pending Received Result Diagram: 05/29/17 1330 05/29/17 1330 Imaging Last Impressions Chest X-Ray 05/29/17 1317 Signed Impressions: Service Date/Time: Monday, May 29, 2017 13:32 - CONCLUSION: No acute disease. There is no evidence of pneumonia. Nicolás Garcia MD Septic Shock Reassessment Septic shock perfusion: reassessment completed Caprini VTE Risk Assessment Caprini VTE Risk Assessment: No/Low Risk (score <= 1) Caprini Risk Assessment Model Point Value = 1 Point Value = 2 Point Value = 3 Point Value = 5 Age 41-60 Minor surgery BMI > 25 kg/m2 Swollen legs Varicose veins or History of unexplained or recurrent spontaneous Oral contraceptives or hormone replacement Sepsis (< 1 month) Serious lung disease, including pneumonia (< 1 month) Abnormal pulmonary function Acute myocardial infarction Congestive heart failure (< 1 month) History of inflammatory bowel disease Medical patient at bed rest Age 61-74 Arthroscopic surgery Major open surgery (> 45 min) Laparoscopic surgery (> 45 min) Malignancy Confined to bed (> 72 hours) Immobilizing plaster cast Central venous access Age >= 75 History of VTE Family history of VTE Factor V Leiden Prothrombin [id number] Lupus anticoagulant Anticardiolipin antibodies Elevated serum homocysteine Heparin-induced thrombocytopenia Other congenital or acquired thrombophilia Stroke (< 1 month) Elective arthroplasty Hip, pelvis, or leg fracture Acute spinal cord injury (< 1 month) Prophylaxis Regimen Total Risk Factor Score Risk Level Prophylaxis Regimen 0-1 Low Early ambulation 2 Moderate Order ONE of the following: *Sequential Compression Device (SCD) *Heparin 5000 units SQ BID 3-4 Higher Order ONE of the following medications: *Heparin 5000 units SQ TID *Enoxaparin/Lovenox 40 mg SQ daily (WT < 150 kg, CrCl > 30 mL/min) *Enoxaparin/Lovenox 30 mg SQ daily (WT < 150 kg, CrCl > 10-29 mL/min) *Enoxaparin/Lovenox 30 mg SQ BID (WT < 150 kg, CrCl > 30 mL/min) AND/OR *Sequential Compression Device (SCD) 5 or more Highest Order ONE of the following medications: *Heparin 5000 units SQ TID (Preferred with Epidurals) *Enoxaparin/Lovenox 40 mg SQ daily (WT < 150 kg, CrCl > 30 mL/min) *Enoxaparin/Lovenox 30 mg SQ daily (WT < 150 kg, CrCl > 10-29 mL/min) *Enoxaparin/Lovenox 30 mg SQ BID (WT < 150 kg, CrCl > 30 mL/min) AND *Sequential Compression Device (SCD) Assessment and Plan Problem List: (1) Hypothermia ICD Codes: T68.XXXA - Hypothermia, initial encounter Status: Resolved Plan: - hypothermia resolved - hypothermia felt to be attributable to her hypoglycemia - pt was never hypotensive - NO tachycardia recorded - Pt appears clinically stable - follow cultures (2) Hypoglycemia ICD Codes: E16.2 - Hypoglycemia, unspecified Status: Acute Plan: - Per pt recent adjustment of her insulin pump by Endocrinology with less basal insulin - Per pt her blood sugar readings were more labile recently due to cough/cold/ infection - Per patient blood sugar readings in the 600 which prompted her to bolus more insulin by her insulin pump - Patient noted to be hypoglycemic by EMS and treated in the field - ER records recorded blood sugar 56 - Patient was started on D10 1 half normal saline at 50 cc/h. Patient also received an amp of dextrose upon arrival to the ER and given orange juice - ER records note normal mentation - Patient given antibiotics in the ER: Vancomycin, Flagyl, as suspected a.m. - Patient evaluated by critical care medicine. Patient not felt to be septic. - Intravenous fluids adjusted to D5 1/2 normal saline which was seen stopped due to persistent hyperglycemia - Patient resumed her insulin pump per endocrinology recommended settings for her basal insulin with bolused insulin with meals per carbohydrate intake - Patient placed on [place] NovoLog medium dose sliding scale - (3) Diabetes mellitus type 1 ICD Codes: E10.9 - Type 1 diabetes mellitus without complications Status: Chronic Plan: - see above (4) CAD (coronary artery disease) ICD Codes: I25.10 - Atherosclerotic heart disease of [place] coronary artery without angina pectoris Status: Chronic Plan: - ASA, pravachol, coreg, plavix (5) HTN (hypertension) ICD Codes: I10 - Essential (primary) hypertension Status: Chronic Plan: - coreg, lisinopril (6) Hypothyroid ICD Codes: E03.9 - Hypothyroidism, unspecified Status: Chronic Plan: - levothyroxine (7) S/P IVC filter ICD Codes: Z95.828 - Presence of other vascular implants and grafts Status: Chronic Plan: - h/o PAD Physician Certification 2 Midnight Certification Type: Admission for Inpatient Services Order for Inpatient Services The services are ordered in accordance with Medicare regulations or non- Medicare payer requirements, as applicable. In the case of services not specified as inpatient-only, they are appropriately provided as inpatient services in accordance with the 2-midnight benchmark. Estimated LOS (days): 3 3 days is the estimated time the patient will need to remain in the hospital, assuming treatment plan goals are met and no additional complications. Post-Hospital Plan: Not yet determined Problem Qualifiers (1) Hypothermia: Qualified Codes: T68.XXXA - Hypothermia, initial encounter (2) Diabetes mellitus type 1: Qualified Codes: E10.649 - Type 1 diabetes mellitus with hypoglycemia without coma (3) CAD (coronary artery disease): Qualified Codes: I25.10 - Atherosclerotic heart disease of [place] coronary artery without angina pectoris (4) HTN (hypertension): Qualified Codes: I10 - Essential (primary) hypertension (5) Hypothyroid: Qualified Codes: E03.9 - Hypothyroidism, unspecified Walt Kerr DO May 29, 2017 17:42
[2017-05-29 20:50] VITALS: BP 129/54; PULSE 102; RESP 17; TEMP 98.7; O2SAT 99
[2017-05-29] MEDS ORDERED: LATANOPROST 0.005% OPHT SOLN 2.5 ML BTL EACH EYE SCH (21:00)
[2017-05-29] MEDS: SODIUM CHLORIDE 0.9% FLUSH 10 ML FLUSH IV FLUSH SCH (21:14)
[2017-05-29] MEDS: CARVEDILOL 3.125 MG TAB PO SCH (21:14)
[2017-05-29] MEDS: INSULIN ASPART SUPPLEMENTAL SCALE SQ SCH (22:06)
[2017-05-29] MEDS ORDERED: INSULIN ASPART 1,000 UNITS/10 ML VIAL SQ ONE (22:30)
[2017-05-30] VITALS: BP 118/56; PULSE 84; RESP 17; TEMP 98.2; O2SAT 99
[2017-05-30 04:29] VITALS: BP 105/52; PULSE 82; RESP 17; TEMP 97.9; O2SAT 99
[2017-05-30] MEDS ORDERED: LEVOTHYROXINE SODIUM 100 MCG TAB PO SCH (06:00)
[2017-05-30 06:07] LABS: AUTOMATED NEUTROPHIL # 7.1 TH/MM3 (1.8-7.7); BASOPHIL # 0.1 TH/MM3 (0-0.2); BASOPHIL % 0.6 % (0.0-2.0); EOSINOPHIL # 0.1 TH/MM3 (0-0.4); EOSINOPHIL % 0.8 % (0.0-4.0); HEMATOCRIT 27.7 % (35.0-46.0); HEMOGLOBIN 9.1 GM/DL (11.6-15.3); LYMPH % 14.1 % (9.0-44.0); LYMPHOCYTE # 1.4 TH/MM3 (1.0-4.8); MEAN CELL VOLUME 93.8 FL (80.0-100.0); MEAN CORPUSCULAR HEMOGLOBIN 30.7 PG (27.0-34.0); MEAN CORPUSCULAR HGB CONC 32.8 % (32.0-36.0); MEAN PLATELET VOLUME 8.1 FL (7.0-11.0); MONO % 11.3 % (0.0-8.0); MONOCYTE # 1.1 TH/MM3 (0-0.9); NEUT % 73.2 % (16.0-70.0); PLATELET COUNT 247 TH/MM3 (150-450); RED BLOOD COUNT 2.96 MIL/MM3 (4.00-5.30); RED CELL DISTRIBUTION WIDTH 16.3 % (11.6-17.2); WHITE BLOOD COUNT 9.7 TH/MM3 (4.0-11.0)
[2017-05-30 06:30] LABS: BICARBONATE 23.7 MEQ/L (21.0-32.0); CREATININE 0.72 MG/DL (0.50-1.00)
[2017-05-30 07:54] VITALS: PULSE 80
[2017-05-30 08:00] VITALS: BP 102/57; PULSE 80; RESP 17; TEMP 98.8; O2SAT 99
[2017-05-30] MEDS: INSULIN ASPART SUPPLEMENTAL SCALE SQ SCH ×3 (08:00→17:00)
[2017-05-30] MEDS: SODIUM CHLORIDE 0.9% FLUSH 10 ML FLUSH IV FLUSH SCH (08:18)
[2017-05-30] MEDS: CARVEDILOL 3.125 MG TAB PO SCH (08:18)
[2017-05-30] MEDS ORDERED: LISINOPRIL 5 MG TAB PO SCH (09:00)
[2017-05-30] MEDS ORDERED: PRAVASTATIN SOD 40 MG TAB PO SCH (09:00)
[2017-05-30] MEDS ORDERED: ASPIRIN 81 MG CHEW TAB CHEW SCH (09:00)
[2017-05-30] MEDS ORDERED: CLOPIDOGREL 75 MG TAB PO SCH (09:00)
--- NOTE | 2017-05-30 15:11 | EKG ---
Date Performed: 05/29/2017 Time Performed: 20:48:32 PTAGE: 67 years EKG: SINUS TACHYCARDIA NONSPECIFIC T-WAVE ABNORMALITY Since previous tracing, no significant marichuy nge noted ABNORMAL RHYTHM ECG PREVIOUS TRACING : 05/16/2016 02.35 DOCTOR: Wayne Alas Interpretating Date/Time 05/30/2017 15:09:39
[2017-05-30 15:32] VITALS: BP 115/59; PULSE 82; RESP 16; TEMP 97.4; O2SAT 100
--- NOTE | 2017-05-30 16:21 | HHI.PR ---
Subjective Remarks Pt has NO new complaints and is eager for discharge to home. Pt required additional Novolog 20 units last night for coverage night. Pt has had a few low blood sugars since admission 49 at 4AM (05/30) and 69 at 2PM. Pt is adamant about discharge. Objective Vitals Vital Signs Date Time Temp Pulse Resp B/P (MAP) Pulse Ox O2 Delivery O2 Flow Rate FiO2 05/30/17 15:32 97.4 82 16 115/59 (77) 100 05/30/17 08:00 98.8 80 17 102/57 (72) 99 05/30/17 07:54 80 05/30/17 04:29 97.9 82 17 105/52 (69) 99 05/30/17 00:00 98.2 84 17 118/56 (76) 99 05/29/17 20:50 98.7 102 17 129/54 (79) 99 05/29/17 18:11 Result Diagram: 05/30/17 0539 05/30/17 0539 Imaging Last Impressions Chest X-Ray 05/29/17 1317 Signed Impressions: Service Date/Time: Monday, May 29, 2017 13:32 - CONCLUSION: No acute disease. There is no evidence of pneumonia. Nicolás Garcia MD Objective Remarks GENERAL: This is a well-nourished, well-developed patient, in no apparent distress. CARDIOVASCULAR: Regular rate and rhythm without murmurs, gallops, or rubs. RESPIRATORY: Clear to auscultation. Breath sounds equal bilaterally. No wheezes , rales, or rhonchi. GASTROINTESTINAL: Abdomen soft, non-tender, nondistended. Normal active bowel sounds MUSCULOSKELETAL: Extremities without clubbing, cyanosis, or edema. NEURO: Alert & Oriented x4 to person, place, time, situation. Moves all ext x4 A/P Problem List: (1) UTI (urinary tract infection) ICD Codes: N39.0 - Urinary tract infection, site not specified Status: Acute Plan: - urine cx (05/29) --> gram negative travis, sensitivities pending (2) Hypothermia ICD Codes: T68.XXXA - Hypothermia, initial encounter Status: Resolved Plan: - hypothermia resolved - hypothermia felt to be attributable to her hypoglycemia - pt was never hypotensive - NO tachycardia recorded - Pt appears clinically stable - follow cultures - blood cultures (05/29) --> NO growth to date - urine cx: gram negative rods, final sensitivities pending (3) Hypoglycemia ICD Codes: E16.2 - Hypoglycemia, unspecified Status: Acute Plan: - Per pt recent adjustment of her insulin pump by Endocrinology with less basal insulin - Per pt her blood sugar readings were more labile recently due to cough/cold/ infection - Per patient blood sugar readings in the 600 which prompted her to bolus more insulin by her insulin pump - Patient noted to be hypoglycemic by EMS and treated in the field - ER records recorded blood sugar 56 - Patient was started on D10 1 half normal saline at 50 cc/h. Patient also received an amp of dextrose upon arrival to the ER and given orange juice - ER records note normal mentation - Patient given antibiotics in the ER: Vancomycin, Flagyl, as suspected a.m. - Patient evaluated by critical care medicine. Patient not felt to be septic. - Intravenous fluids adjusted to D5 1/2 normal saline which was seen stopped due to persistent hyperglycemia - Patient resumed her insulin pump per endocrinology recommended settings for her basal insulin with bolused insulin with meals per carbohydrate intake - Patient placed on [employer] NovoLog medium dose sliding scale - overall pt doing better from admission - pt declines further hospitalization - I will discharge pt to home this evening - Dr. Underwood's office is currently closed for - pt to call Dr. Underwood's office to schedule f/u apointment 05/31 for reevaluation of insulin pump - (4) Diabetes mellitus type 1 ICD Codes: E10.9 - Type 1 diabetes mellitus without complications Status: Chronic Plan: - see above (5) CAD (coronary artery disease) ICD Codes: I25.10 - Atherosclerotic heart disease of [place] coronary artery without angina pectoris Status: Chronic Plan: - ASA, pravachol, coreg, plavix (6) HTN (hypertension) ICD Codes: I10 - Essential (primary) hypertension Status: Chronic Plan: - coreg, lisinopril (7) Hypothyroid ICD Codes: E03.9 - Hypothyroidism, unspecified Status: Chronic Plan: - levothyroxine (8) S/P IVC filter ICD Codes: Z95.828 - Presence of other vascular implants and grafts Status: Chronic Plan: - h/o PAD Problem Qualifiers (1) UTI (urinary tract infection): Qualified Codes: N30.00 - Acute cystitis without hematuria (2) Hypothermia: Qualified Codes: T68.XXXA - Hypothermia, initial encounter (3) Diabetes mellitus type 1: Qualified Codes: E10.649 - Type 1 diabetes mellitus with hypoglycemia without coma (4) CAD (coronary artery disease): Qualified Codes: I25.10 - Atherosclerotic heart disease of [place] coronary artery without angina pectoris (5) HTN (hypertension): Qualified Codes: I10 - Essential (primary) hypertension (6) Hypothyroid: Qualified Codes: E03.9 - Hypothyroidism, unspecified Walt Kerr DO May 30, 2017 16:21
[2017-05-30] MEDS ORDERED: LEVOFLOXACIN 500 MG TAB PO ONE (17:00)
[2017-05-30] MEDS ORDERED: LEVA500T33 PO (17:01)
--- NOTE | 2017-05-30 17:10 | HHI.DCPOC ---
Discharge Care Plan Diagnosis: (1) Diabetes mellitus type 1 (2) UTI (urinary tract infection) Goals to Promote Your Health * To prevent worsening of your condition and complications * To maintain your health at the optimal level Directions to Meet Your Goals Take your medications as prescribed Follow your dietary instruction Follow activity as directed Keep your appointments as scheduled Take your immunizations and boosters as scheduled If your symptoms worsen call your PCP, if no PCP go to Urgent Care Center or Emergency Room Smoking is Dangerous to Your Health. Avoid second hand smoke Call the 24-hour hour crisis hotline for domestic abuse at Walt Kerr DO May 30, 2017 17:10
== END 2017-05-30 18:35 | disposition home or self-care (01) | DRG 638 ==
LOC: NEPC 13:03 → NEDA 15:44 → N06A 18:00
PROVIDERS: ADMIT Hospitalist; ATTEND Hospitalist
DX: E10.649 Type 1 diabetes mellitus with hypoglycemia without coma (principal); N39.0 Urinary tract infection, site not specified; T68.XXXA Hypothermia, initial encounter; E10.22 Type 1 diabetes mellitus with diabetic chronic kidney disease; J44.9 Chronic obstructive pulmonary disease, unspecified; B96.89 Other specified bacterial agents as the cause of diseases classified elsewhere; I12.9 Hypertensive chronic kidney disease with stage 1 through stage 4 chronic kidney disease, or unspecified chronic kidney disease; N18.3 Chronic kidney disease, stage 3 (moderate); I82.501 Chronic embolism and thrombosis of unspecified deep veins of right lower extremity; Z79.02 Long term (current) use of antithrombotics/antiplatelets; E10.3599 Type 1 diabetes mellitus with proliferative diabetic retinopathy without macular edema, unspecified eye; E10.43 Type 1 diabetes mellitus with diabetic autonomic (poly)neuropathy; K31.84 Gastroparesis; Z96.41 Presence of insulin pump (external) (internal); M50.30 Other cervical disc degeneration, unspecified cervical region; M81.0 Age-related osteoporosis without current pathological fracture; Z79.82 Long term (current) use of aspirin; I25.10 Atherosclerotic heart disease of native coronary artery without angina pectoris; E03.9 Hypothyroidism, unspecified; F17.210 Nicotine dependence, cigarettes, uncomplicated; M19.90 Unspecified osteoarthritis, unspecified site; Z86.010 Personal history of colon polyps
CPT/HCPCS: 71045; 80048; 80053; 81001; 82550; 82552; 82948; 83605; 83690; 83735; 84484; 85025; 85610; 85730; 86403; 87040; 87077; 87086; 87185; 87186; 87205; 87804; 93005; 96365; 96366; 96368; 96375; J1815; J2405; J3370; J3480; J7030; J7050

== ENCOUNTER → 2017-08-18 | Day surgery (SDC) | payer MEDICARE ==
[~2017-08-18] VITALS: Ht 160 cm; Wt 52.2 kg
[~2017-08-18] MED LIST changes: +CARV3.12 PO; +CHLORHEXIDINE GLUCONATE 2 % 1 PACK (2 CLOTHS) TOPICAL PRN; +FURO20TA PO; +HYALURONIDASE/LIDOCAINE/BUPIVACAINE 5 ML SYR LEFT EYE ONE; -HYDR-3288 PO; +LACTATED RINGER'S 1000 ML IV PRN; +LEVA500T33 PO; +LEVO-168 PO; -LEVO100T5 PO; +LIDOCAINE HCL 1% PF 30 ML VIAL ONE; +METOPROLOL TARTRATE 25 MG TAB PO PRN; +POVIDONE IODINE 5% (ANTISEPSIS KIT) 4 APPLICATIONS EACH NARE PRN; +PROPARACAINE HCL 0.5% OPHT SOLN 15 ML BTL LEFT EYE ONE; +PROPOFOL 200 MG/20 ML AMP ONE; +RANI150T PO; +SODIUM CHLORID 0.9% 500 ML IV PRN; +TOBRAMYCIN/DEXAMETHASONE OPTH OINT 3.5 GM TUBE ONE
[2017-08-18] MEDS: PHENYLEPHRINE HCL 10% OPTH SOLN 5 ML BTL LEFT EYE SCH ×4 (07:45→08:00)
[2017-08-18] MEDS: TROPICAMIDE 1% OPHT SOLN 15 ML BTL LEFT EYE SCH ×4 (07:45→08:00)
[2017-08-18] MEDS: CYCLOPENTOLATE HCL 1% OPHT SOLN 2 ML BTL LEFT EYE SCH ×4 (07:45→08:00)
[2017-08-18] MEDS: FLURBIPROFEN 0.03% OPHT SOLN 2.5 ML BTL LEFT EYE SCH ×4 (07:45→08:00)
[2017-08-18 09:50] VITALS: BP 146/55; PULSE 88; RESP 18; O2SAT 100
--- NOTE | 2017-08-18 10:14 | MP ---
cc: Savage Noel MD DATE OF OPERATION: 08/18/2017 [facility] # PREOPERATIVE DIAGNOSIS: Visually significant cataract left eye. POSTOPERATIVE DIAGNOSIS: Visually significant cataract left eye. OPERATION: Phacoemulsification with posterior chamber lens implantation, left eye. SURGEON: Savage Noel MD ANESTHESIA: Retrobulbar with MAC. COMPLICATIONS: None. PROCEDURE: After informed consent was obtained, the patient was brought into the operative suite and placed on appropriate monitors by the Anesthesia Service. The patient had received a prior retrobulbar injection of local anesthetic by the Anesthesia Service in the holding area. The patient's operative eye was then prepped and draped in the usual sterile fashion. A wire lid speculum was placed. A paracentesis incision was made in the peripheral cornea with a 1 mm luba keratome. The anterior chamber was filled with viscoelastic. The anterior chamber was then entered through a stepped, clear corneal incision using a sharp 3 mm luba keratome. A circular tear capsulorrhexis was then made with a bent needle cystitome. Following hydrodissection of the lens nucleus with balanced saline, phaco-emulsification of the nucleus was performed using a modified chopping technique. The remaining cortex was removed with irrigation/aspiration. The prior two procedures were both performed using the handpieces of the [employer] phaco unit. The capsular bag was then filled with viscoelastic. The intraocular lens was then injected into the capsular bag and positioned. The type of intraocular lens and its power can be found elsewhere in this chart. The remaining viscoelastic was then removed from the anterior chamber with the IA handpiece. The anterior chamber was reformed with balanced saline. The wound was then closed securely with stromal hydration. It was found to be watertight to an intraocular pressure of at least 30 mmHg by palpation. A small amount of balanced salt solution was then removed through the paracentesis site and the intraocular pressure at the end of the case was approximately 20 by palpation. All drapes were then removed. TobraDex ointment was then placed in the eye, which was closed beneath a semi-pressure patch dressing. The patient tolerated this procedure well and left the operating room awake and alert. The patient is to follow-up in my office in the morning. Savage MD SANDRA Avendano/REMBERTO , 10:04 AM , 10:13 AM
== END | disposition home or self-care (01) ==
LOC: PHSDC 06:52
PROVIDERS: ATTEND Optometrist Occupational Vision
DX: H25.812 Combined forms of age-related cataract, left eye (principal); I10 Essential (primary) hypertension; E10.9 Type 1 diabetes mellitus without complications; Z96.41 Presence of insulin pump (external) (internal)
CPT/HCPCS: 00142; 66984; 82948; J7040; V2632

== ENCOUNTER → 2017-09-29 | Day surgery (SDC) | payer MEDICARE ==
[~2017-09-29] VITALS: Ht 160 cm; Wt 52.0 kg
[~2017-09-29] MED LIST changes: -CARV3.12 PO; +EPINEPHrine HCL PF/SF (1:1000) 1 MG/ML AMP I-OCULAR ONE; -HYALURONIDASE/LIDOCAINE/BUPIVACAINE 5 ML SYR LEFT EYE ONE; +HYALURONIDASE/LIDOCAINE/BUPIVACAINE 5 ML SYR RIGHT EYE ONE; -LEVA500T33 PO; -LIDOCAINE HCL 1% PF 30 ML VIAL ONE; +NOVOLOGSS IMPLANT; -PROPARACAINE HCL 0.5% OPHT SOLN 15 ML BTL LEFT EYE ONE; +PROPARACAINE HCL 0.5% OPHT SOLN 15 ML BTL RIGHT EYE ONE; +TRIA1SPR6 EACH NARE; -WALKER/ADULT/FO1 MIS
[2017-09-29] MEDS: TROPICAMIDE 1% OPHT SOLN 15 ML BTL RIGHT EYE SCH ×4 (08:25→08:40)
[2017-09-29] MEDS: FLURBIPROFEN 0.03% OPHT SOLN 2.5 ML BTL RIGHT EYE SCH ×4 (08:25→08:40)
[2017-09-29] MEDS: CYCLOPENTOLATE HCL 1% OPHT SOLN 2 ML BTL RIGHT EYE SCH ×4 (08:25→08:40)
[2017-09-29] MEDS: PHENYLEPHRINE HCL 10% OPTH SOLN 5 ML BTL RIGHT EYE SCH ×4 (08:25→08:40)
[2017-09-29 08:44] VITALS: PULSE 81
[2017-09-29 08:49] VITALS: PULSE 83
[2017-09-29 09:58] VITALS: TEMP 98.4
--- NOTE | 2017-09-29 10:16 | MP ---
cc: Savage Noel MD DATE OF OPERATION: 09/29/2017 DATE OF PROCEDURE: 09/29/2017 PREOPERATIVE DIAGNOSIS: Visually significant cataract right eye. POSTOPERATIVE DIAGNOSIS: Visually significant cataract right eye. OPERATION: Phacoemulsification with posterior chamber lens implantation, right eye. SURGEON: Savage Noel MD ANESTHESIA: Retrobulbar with MAC. COMPLICATIONS: None. PROCEDURE: After informed consent was obtained, the patient was brought into the operative suite and placed on appropriate monitors by the Anesthesia Service. The patient had received a prior retrobulbar injection of local anesthetic by the Anesthesia Service in the holding area. The patient's operative eye was then prepped and draped in the usual sterile fashion. A wire lid speculum was placed. A paracentesis incision was made in the peripheral cornea with a 1 mm luba keratome. The anterior chamber was filled with viscoelastic. The anterior chamber was then entered through a stepped, clear corneal incision using a sharp 3 mm luba keratome. A circular tear capsulorrhexis was then made with a bent needle cystitome. Following hydrodissection of the lens nucleus with balanced saline, phaco-emulsification of the nucleus was performed using a modified chopping technique. The remaining cortex was removed with irrigation/aspiration. The prior two procedures were both performed using the handpieces of the [employer] phaco unit. The capsular bag was then filled with viscoelastic. The intraocular lens was then injected into the capsular bag and positioned. The type of intraocular lens and its power can be found elsewhere in this chart. The remaining viscoelastic was then removed from the anterior chamber with the IA handpiece. The anterior chamber was reformed with balanced saline. The wound was then closed securely with stromal hydration. It was found to be watertight to an intraocular pressure of at least 30 mmHg by palpation. A small amount of balanced salt solution was then removed through the paracentesis site and the intraocular pressure at the end of the case was approximately 20 by palpation. All drapes were then removed. TobraDex ointment was then placed in the eye, which was closed beneath a semi-pressure patch dressing. The patient tolerated this procedure well and left the operating room awake and alert. The patient is to follow-up in my office in the morning. Savage MD SULAIMAN Avendano , 10:05 AM , 10:15 AM
[2017-09-29 10:17] VITALS: BP 126/69; PULSE 79; RESP 16; O2SAT 100
== END | disposition home or self-care (01) ==
LOC: PHSDC 06:58
PROVIDERS: ATTEND Optometrist Occupational Vision
DX: H25.811 Combined forms of age-related cataract, right eye (principal)
CPT/HCPCS: 00142; 66984; J0171; J7040; V2632